=== PATIENT | female | born 1940 | race Caucasian/White ===

== ENCOUNTER 2018-01-11 19:09 | Emergency (ER) | payer MEDICARE ==
[~2018-01-11] VITALS: Ht 165.1 cm; Wt 75.8 kg
[~2018-01-11 19:09] MED LIST: CYMBALTA30 MG PO; GABAPENTIN300 MG PO; METFORMIN HCL500 MG PO; NORCO 5-325 TA1 EACH PO; VALIUM5 MG PO
--- OUTSIDE RECORDS SUMMARY | 2018-01-11 19:15 | XMS ---
Demographics + + + | Address | [address] | | | [place] [address] | + + + | Preferred Language | Unknown | + + + | Marital Status | Unknown | + + + | Muslim Affiliation | Unknown | + + + | Race | Unknown | + + + | Ethnic Group | Unknown | + + + Author + + + | Author | [facility] | + + + | Organization | [facility] | + + + | Address | [address] | | | [place] [address] | + + + | Phone | | + + + Care Team Providers + + + + | Care Chief Operator Reformer Name | Role | Phone | + + + + Unavailable | Unavailable | + + + + PROBLEMS +---------+ + + +--------+ + + | Type | Condition | ICD9-CM | [id number] | Onset | Condition | SNOMED | | | | Code | Code | Dates | Status | Code | +---------+ + + +--------+ + + | Problem | Impaired | | R73.01 | | Active | [id number] | | | fasting | | | | | | | | glucose | | | | | | +---------+ + + +--------+ + + | 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 | 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 | | | idiopathic | | | | | | | | scoliosis | | | | | | | | of | | | | | | | | thoracic | | | | | | | | region | | | | | | +---------+ + + +--------+ + + | Problem | Non morbid | E66.09 | | | Active | 184564617 | | | obesity | | | | | | | | due to | | | | | | | | excess | | | | | | | | calories | | | | | | +---------+ + + +--------+ + + | Problem | Lumbar | M54.17 | | | Active | 684868081 | | | back pain | | | | | | | | with | | | | | | | | radiculopa | | | | | | | | thy | | | | | | | | affecting | | | | | | | | left lower | | | | | | | | extremity | | | | | | +---------+ + + +--------+ + + | 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
--- OUTSIDE RECORDS SUMMARY | 2018-01-11 19:15 | XMS ---
Demographics + + + | Address | [address] | | | [place] [address] | + + + | Preferred Language | Unknown | + + + | Marital Status | Unknown | + + + | Restorationist Affiliation | Unknown | + + + | Race | Unknown | + + + | Ethnic Group | Unknown | + + + Author + + + | Author | [facility] | + + + | Organization | [facility] | + + + | Address | [address] | | | [place] [address] | + + + | Phone | | + + + Care Team Providers + + + + | Care Space Scheduler Name | Role | Phone | + + + + Unavailable | Unavailable | + + + + PROBLEMS + + + + + + + + | Type | Condition | ICD9-CM | RST84-GM | Onset | Condition | SNOMED | | | | Code | Code | Dates | Status | Code | + + + + + + + + | Assessment | Slow | | K59.01 | 03 March, | Active | [id number] | | | transit | | | 2016 | | | | | constipati | | | | | | | | on | | | | | | + + + + + + + + | Assessment | Hypertensi | I11.9 | | 03 March, | Active | 66443521 | | | ve | | | 2016 | | | | | arterioscl | | | | | | | | erotic | | | | | | | | cardiovasc | | | | | | | | ular | | | | | | | | disease | | | | | | + + + + + + + + | Assessment | Dysthymia | F34.1 | | 16 February, | Active | 78718946 | | | | | | 2016 | | | + + + + + + + + | Problem | Impaired | | R73.01 | | Active | 929480403 | | | fasting | | | | | | | | glucose | | | | | | + + + + + + + + | 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 | 41284629 | | | idiopathic | | | | | | | | scoliosis | | | | | | | | of | | | | | | | | thoracic | | | | | | | | region | | | | | | + + + + + + + + | Problem | Non morbid | E66.09 | | | Active | 604354499 | | | obesity | | | | | | | | due to | | | | | | | | excess | | | | | | | | calories | | | | | | + + + + + + + + | Problem | Lumbar | M54.17 | | | Active | 163842196 | | | back pain | | [...] extremity | | | | | | + + + + + + + + | 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 | | Active | 867703852 | | | hyperlipid | | | | | | | | emia | | | | | | + + + + + + + + | Problem | Hypertensi | I11.9 | | | Active | 81767794 | | | ve | | | | | | | | arterioscl | | | | | | | | erotic | | | | | | | | cardiovasc | | | | | | | | ular | | | | | | | | disease | | | | | | + + + + + + + + ALLERGIES + + + + +---------+ | Substance | Reaction | Event Type | Date | Status | + + + + +---------+ | Rani | Unknown | Non Drug | February, | Unknown | | | | Allergy | | | + + + + +---------+ SOCIAL HISTORY No smoking Hx information available PLAN OF CARE VITAL SIGNS + + + + | Height | 65 in | 2017-03-03 | + + + + | Weight | 175.3 lbs | 2017-03-03 | + + + + | BMI | 29.17 kg/m2 | 2017-03-03 | + + + + | Heart Rate | 62 /min | 2017-03-03 | + + + + | Blood pressure systolic | 133 mm Hg | 2017-03-03 | + + + + | Blood pressure diastolic | 65 mm Hg | 2017-03-03 | + + + + MEDICATIONS + + + + +--------+ + +--------+ | Medicati | Instruct | Dosage | Frequenc | Start | End Date | Duration | Status | | on | ions | | y | Date | | | | + + + + +--------+ + +--------+ | Atorvast | Orally | 1 tablet | 24h | | | | Active | | atin | Once a | | | | | | | | Calcium | day | | | | | | | | 40 MG | | | | | | | | + + + + +--------+ + +--------+ | Cetirizi | | | | | | | Active | | ne HCl | | | | | | | | | 10 MG | | | | | | | | + + + + +--------+ + +--------+ | Meloxica | Orally | 1 tablet | 24h | | | 30 | Active | | m 15 MG | Once a | | | | | day(s) | | | | day | | | | | | | + + + + +--------+ + +--------+ | Gabapent | Orally | 2 | 24h | | | | Active | | in 300 | Daily | capsules | | | | | | | MG | | in AM 3 | | | | | | | | | | | | | | | | | | capsules | | | | | | | | | in PM | | | | | | + + + + +--------+ + +--------+ | Calcium | Orally | 1 tablet | 24h | | | 30 | Active | | + D | Once a | with | | | | day(s) | | | 630-500 | day | food | | | | | | | MG-UNIT | | | | | | | | + + + + +--------+ + +--------+ | Cranberr | | | | | | | Active | | y 84 | | | | | | | | + + + + +--------+ + +--------+ | Fexofena | Orally | 1 tablet | 24h | | | | Active | | dine HCl | Once a | as | | | | | | | 180 MG | day | needed | | | | | | + + + + +--------+ + +--------+ | Vitamin | Orally | 1 tablet | 24h | | | | Active | | C 500 MG | Once a | | | | | | | | | day | | | | | | | + + + + +--------+ + +--------+ | Acetamin | Orally | 2 tablet | 24h | | | | Active | | ophen | daily | in | | | | | | | 500 MG | | morning | | | | | | | | | and at | | | | | | | | | night | | | | | | + + + + +--------+ + +--------+ | Atorvast | Orally | 1 tablet | 24h | | | 90 | Active | | atin | Once a | | | | | | | | Calcium | day | | | | | | | | 40MG | | | | | | | | + + + + +--------+ + +--------+ | Ibuprofe | Orally | 1 tablet | 6h | | | | Active | | n 200 MG | every 6 | as | | | | | | | | hrs | needed | | | | | | + + + + +--------+ + +--------+ | Metformi | Orally | 1 tablet | 24h | | | | Active | | n HCl | Once a | | | | | | | | 500 MG | day | | | | | | | + + + + +--------+ + +--------+ | MiraLax | Orally | 1 packet | 24h | | | | Active | | 17 | Once a | mixed | | | | | | | | day | with 8 | | | | | | | | | ounces | | | | | | | | | of fluid | | | | | | + + + + +--------+ + +--------+ | Simethic | Orally | 1 | 6h | | | | Active | | one 125 | Four | capsule | | | | | | | MG | times a | after | | | | | | | | day | meals | | | | | | | | | and at | | | | | | | | | bedtime | | | | | | | | | as | | | | | | | | | needed | | | | | | + + + + +--------+ + +--------+ | Metoprol | Orally | 1 tablet | 24h | | | | Active | | ol | Once a | | | | | | | | Succinat | day | | | | | | | | e 25 mg | | | | | | | | + + + + +--------+ + +--------+ | Magnesiu | Orally | 1 tablet | 24h | | | | Active | | m 250 MG | Once a | with a | | | | | | | | day | meal | | | | | | + + + + +--------+ + +--------+ RESULTS No Results PROCEDURES + + + + + | Procedure | Date Ordered | Related Diagnosis | Body Site | + + + + + | Office Visit, Est | March 03, 2017 | | | | Pt., Level 4 | | | | + + + + + IMMUNIZATIONS No Known Immunizations"
--- OUTSIDE RECORDS SUMMARY | 2018-01-11 19:15 | XMS ---
Demographics + + + | Address | [address] | | | [place] [address] | + + + | Preferred Language | Unknown | + + + | Marital Status | Unknown | + + + | Tenriism Affiliation | Unknown | + + + | Race | Unknown | + + + | Ethnic Group | Unknown | + + + Author + + + | Author | [facility] | + + + | Organization | [facility] | + + + | Address | [address] | | | [place] [address] | + + + | Phone | | + + + Care Team Providers + + + + | Care Frickertron Checker Name | Role | Phone | + + + + Unavailable | Unavailable | + + + + PROBLEMS + + + + + + + + | Type | Condition | ICD9-CM | [id number] | Onset | Condition | SNOMED | | | | Code | Code | Dates | Status | Code | + + + + + + + + | Assessment | Slow | | K59.01 | 20 Apr, | Active | [id number] | | | transit | | | 2016 | | | | | constipati | | | | | | | | on | | | | | | + + + + + + + + | Assessment | Hypertensi | I11.9 | | 20 Jan, | Active | 63119568 | | | ve | | | [...] Assessment | Dysthymia | F34.1 | | 20 Apr, | Active | 99213392 | | | | | | 2016 | | | + + + + + + + + | Assessment | Encounter | | Z13.89 | 20 Apr, | Active | [id number] | | | for | | | 2017 | | | | | screening | | | | | | | | for other | | | | | | | | disorder | | | | | | + + + + + + + + | Problem | Impaired | | R73.01 | | Active | 554657306 | | | fasting | | | | | | | | glucose | | | | | | + + + + + + + + | 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 | Unknown | Non Drug | Jan, | Unknown | | | | Allergy | | | + + + + +---------+ SOCIAL HISTORY No smoking Hx information available PLAN OF CARE VITAL SIGNS + + + + | Height | 65 in | 2017-02-05 | + + + + | Weight | 178.5 lbs | 2017-02-05 | + + + + | BMI | 29.70 kg/m2 | 2017-02-05 | + + + + | Heart Rate | 58 /min | 2017-02-05 | + + + + | Blood pressure systolic | 151 mm Hg | 2017-02-05 | + + + + | Blood pressure diastolic | 71 mm Hg | 2017-02-05 | + + + + MEDICATIONS + [...] + + + +--------+ + +--------+ | Duloxeti | Orally | 1 | 24h | | | 30 days | Active | | ne HCl | Once a | capsule | | | | | | | 60 MG | day | | | | [...] | + + + + + | Est Level IV | February 05, 2017 | | | | Extended | | | | + + + + + IMMUNIZATIONS No Known Immunizations"
--- OUTSIDE RECORDS SUMMARY | 2018-01-11 19:15 | XMS ---
Demographics + + + | Address | [address] | | | [place] [address] | + + + | Preferred Language | Unknown | + + + | Marital Status | Unknown | + + + | Temple Affiliation | Unknown | + + + | Race | Unknown | + + + | Ethnic Group | Unknown | + + + Author + + + | Author | [facility] | + + + | Organization | [facility] | + + + | Address | [address] | | | [place] [address] | + + + | Phone | | + + + Care Team Providers + + + + | Care Drafter Plumbing Name | Role | Phone | + + + + Unavailable | Unavailable | + + + + PROBLEMS +---------+ + + +--------+ + + | Type | Condition | ICD9-CM | [id number] | Onset | Condition | SNOMED | | | | Code | Code | Dates | Status | Code | +---------+ + + +--------+ + + | Problem | Impaired | | R73.01 | | Active | [id number] | | | fasting | | | | | | | | glucose | | | | | | +---------+ + + +--------+ + + | 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 | 23964021 | | | idiopathic | | | [...] | E66.09 | | | Active | 370646512 | | | obesity | | | | | | | | due to | | | | | | | | excess | | | | | | | | calories | | | | | | +---------+ + + +--------+ + + | Problem | Lumbar | M54.17 | | | Active | 011921301 | | | back pain | | [...] | | E78.2 | | Active | 669639417 | | | hyperlipid | | | | | | | | emia | | | | | | +---------+ + + +--------+ + + | Problem | Hypertensi | I11.9 | | | Active | 10587478 | | | ve | | | | | | | | arterioscl | | | | | | | | erotic | | | | | | | | cardiovasc | | | | | | | | ular | | | | | | | | disease | | | | | | +---------+ + + +--------+ + + ALLERGIES + + + + +---------+ | Substance | Reaction | Event Type | Date | Status | + + + + +---------+ | Rani | Unknown | Non Drug | May, | Unknown | | | | Allergy | | | + + + + +---------+ SOCIAL HISTORY No smoking Hx information available PLAN OF CARE + +---------+ | Activity | Details | + +---------+ +---+ | | +---+ + + + | Follow Up | prn Reason:null | + + + VITAL SIGNS + + + + | Height | 65 in | 2017-06-16 | + + + + | Weight | 169.6 lbs | 2017-06-16 | + + + + | BMI | 28.22 kg/m2 | 2017-06-16 | + + + + | Temperature | 97.4 degrees Fahrenheit | 2017-06-16 | + + + + | Heart Rate | 77 /min | 2017-06-16 | + + + + | Blood pressure systolic | 138 mm Hg | 2017-06-16 | + + + + | Blood pressure diastolic | 59 mm Hg | 2017-06-16 | + + + + MEDICATIONS + + + + + + + +--------+ | Medicati | Instruct | Dosage | Frequenc | Start | End Date | Duration | Status | | on | ions | | y | Date | | | | + + + + + + + +--------+ | Atorvast | Orally | 1 tablet | 24h | | | | Active | | atin | Once a | | | | | | | | Calcium | day | | | | | | | | 40 MG | | | | | | | | + + + + + + + +--------+ | Fexofena | Orally | 1 tablet | 24h | | | | Active | | dine HCl | Once a | as | | | | | | | 180 MG | day | needed | | | | | | + + + + + + + +--------+ | Cetirizi | | | | | | | Active | | ne HCl | | | | | | | | | 10 MG | | | | | | | | + + + + + + + +--------+ | MiraLax | Orally | [...] + + + + + + + +--------+ | Acetamin | Orally | [...] + + + + + + + +--------+ | Cranberr | | | | | | | Active | | y 84 | | | | | | | | + + + + + + + +--------+ | Metoprol | Orally | 1 tablet | 24h | | | 90 | Active | | ol | Once a | | | | | | | | Succinat | day | | | | | | | | e 25MG | | | | | | | | + + + + + + + +--------+ | Vitamin | Orally | 1 tablet | 24h | | | | Active | | C 500 MG | Once a | | | | | | | | | day | | | | | | | + + + + + + + +--------+ | Simethic | Orally | [...] + + + + + + + +--------+ | Ibuprofe | Orally | 1 tablet | 6h | | | | Active | | n 200 MG | every 6 | as | | | | | | | | hrs | needed | | | | | | + + + + + + + +--------+ | Gabapent | Orally | [...] + + + + + + + +--------+ | Meloxica | Orally | 1 tablet | 24h | | | 90 | Active | | m 15MG | Once a | | | | | | | | | day | | | | | | | + + + + + + + +--------+ | Calcium | Orally | 1 tablet | 24h | | | 30 | Active | | + D | Once a | with | | | | day(s) | | | 630-500 | day | food | | | | | | | MG-UNIT | | | | | | | | + + + + + + + +--------+ | Tessalon | Orally | 1 | 8h | May, | 8 Sep, | 10 days | Active | | Perles | Three | capsule | | 2017 | 2016 | | | | 100 MG | times a | as | | | | | | | | day | needed | | | | | | + + + + + + + +--------+ | Magnesiu | Orally | 1 tablet | 24h | | | | Active | | m 250 MG | Once a | with a | | | | | | | | day | meal | | | | | | + + + + + + + +--------+ | Cephalex | Orally | 1 | 8h | May, | 8 Jun, | 10 | Active | | in 500 | every 8 | capsule | | 2016 | 2016 | day(s) | | | MG | hrs | | | | | | | + + + + + + + +--------+ | Metformi | Orally | 1 tablet | 24h | | | 90 | Active | | n HCl | Once a | | | | | | | | 500MG | day | | | | | | | + + + + + + + +--------+ RESULTS No Results PROCEDURES + + + + + | Procedure | Date Ordered | Related Diagnosis | Body Site | + + + + + | Office Visit, Est | Jun 16, 2017 | | | | Pt., Level 3 | | | | + + + + + IMMUNIZATIONS No Known Immunizations"
--- OUTSIDE RECORDS SUMMARY | 2018-01-11 19:15 | XMS ---
Demographics + + + | Address | [address] | | | [place] [address] | + + + | Preferred Language | Unknown | + + + | Marital Status | Unknown | + + + | Taoism Affiliation | Unknown | + + + | Race | Unknown | + + + | Ethnic Group | Unknown | + + + Author + + + | Author | [facility] | + + + | Organization | [facility] | + + + | Address | [address] | | | [place] [address] | + + + | Phone | | + + + Care Team Providers + + + + | Care High School Tutor Name | Role | Phone | + + + + Unavailable | Unavailable | + + + + PROBLEMS +---------+ + + +--------+ + + | Type | Condition | ICD9-CM | WHM91-BU | Onset | Condition | SNOMED | | | | Code | Code | Dates | Status | Code | +---------+ + + +--------+ + + | Problem | Impaired | | R73.01 | | Active | [id number] | | | fasting | | | | | | | | glucose | | | | | | +---------+ + + +--------+ + + | 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
[2018-01-11] MEDS ORDERED: METOPROLOL SUCC25 MG PO (19:22)
[2018-01-11] MEDS ORDERED: NORCO 5-325 TA1 EACH PO (19:55)
[2018-01-11] MEDS ORDERED: CRUTCH1 EACH (20:01)
== END 2018-01-11 20:24 | disposition home or self-care (01) ==
LOC: ED 19:09
DX: S82.831A Other fracture of upper and lower end of right fibula, initial encounter for closed fracture (principal); Z85.3 Personal history of malignant neoplasm of breast; I10 Essential (primary) hypertension; Z79.899 Other long term (current) drug therapy; Z79.84 Long term (current) use of oral hypoglycemic drugs; X50.9XXA Other and unspecified overexertion or strenuous movements or postures, initial encounter
CPT/HCPCS: 73610; 99283

== ENCOUNTER 2019-06-09 07:35 | Day surgery (SDC) | payer MEDICARE, OTHER ==
[~2019-06-09] VITALS: Ht 165.1 cm; Wt 73.0 kg
[~2019-06-09 07:35] MED LIST changes: +CRUTCH1 EACH; +METOPROLOL SUCC25 MG PO
[2019-06-09] MEDS ORDERED: VITAMIN B125000 MCG PO (08:07)
[2019-06-09] MEDS ORDERED: LIPITOR20 MG PO (08:08)
[2019-06-09] MEDS ORDERED: MULTIVITAMINS1 EAC8 PO (08:08)
[2019-06-09] MEDS ORDERED: VITAMIN D32000 UNI1 PO (08:09)
[2019-06-09] MEDS ORDERED: VITAMIN C500 M1 PO (08:09)
[2019-06-09] MEDS ORDERED: CALCIUM CITRAT1 EAC3 PO (08:10)
[2019-06-09] MEDS ORDERED: MIRALAX119 GM PO (08:11)
[2019-06-09] MEDS ORDERED: MUCUS RELIEF400 MG PO (08:11)
[2019-06-09] MEDS ORDERED: STOOL SOFTENER100 M1 PO (08:11)
--- NOTE | 2019-06-09 09:53 | NUR ---
06/09/19 0953 Bianca Ortega 0923 PT ARRIVED TO PACU ON 3L VIA MASK, PT WAKES TO VERBAL STIMULI THEN BACK TO SLEEP. PT REORIENTED TO PACU. VSS.
--- NOTE | 2019-06-10 08:14 | OR ---
[facility] [address], [place] [address] Signed DATE OF OPERATION: 06/09/2019 SURGEON: Torrie Gallegos MD PREOPERATIVE DIAGNOSES: 1. Iron-deficiency anemia. 2. Tylenol and ibuprofen use. 3. Personal history of colonic polyps in 2010. 4. Sister with colon cancer in her 60s. 5. Father with colonic polyps. 6. Chronic constipation. POSTOPERATIVE DIAGNOSES: 1. Mild punctate diffuse hemorrhagic gastritis. 2. Mid esophageal esophagitis versus Kidd's mucosa. 3. Poor bowel prep. PROCEDURES: 1. EGD with CLOtest and biopsies of the antrum, body of stomach, and midesophagus. 2. Limited colonoscopy without biopsy. ESTIMATED BLOOD LOSS: None. INDICATIONS: Travis is a 79-year-old female who actually looks younger than her stated age. She is here for upper endoscopy due to iron deficiency anemia. She does use some acetaminophen and ibuprofen. She also takes iron tablets. She had a couple of small polyps removed in 2010. She cannot remember the name of the endoscopist. She knows that her sister had colon cancer in her early 60s and her father also had colonic polyps removed. Travis has a little chronic constipation and uses some MiraLAX for that. Otherwise, she has no lower GI complaints. In the office, I gave Travis a pamphlet on upper and lower endoscopy. 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 I reviewed with her the nature of the two tests along with the risks including, but not limited to gas, bloating, crampy abdominal pain, bleeding, perforation requiring surgery, and missed diagnosis. She also understands the need for IV conscious sedation. She had expressed understanding and wished to proceed. PROCEDURE NOTE: Electronically Signed By: TORRIE GALLEGOS MD 06/10/19 0814 PATIENT NAME: TRAVIS MANLEY OPERATIVE REPORT DATE OF : 42 REPORT #: [id number] PHYSICIAN: TORRIE GALLEGOS MD PCP: ANGELINA HUERTAS MD REPORT IS CONFIDENTIAL AND NOT TO BE RELEASED WITHOUT AUTHORIZATION [facility] [address], [place] [address] Signed Travis was taken into our endoscopy suite and placed in the supine semi-recumbent position. The posterior oropharynx was anesthetized with Hurricaine spray. A bite block was utilized for the case. A total of 5 mg of Versed and 125 mcg of fentanyl was utilized for both upper and lower endoscopy. The adult gastroscope had been introduced and advanced out into the third portion of the duodenum under direct visualization of camera without difficulty. The duodenum and pyloric channel were unremarkable. The stomach showed some mild diffuse punctate hemorrhagic gastritis. More so in the proximal half than the distal half. We took biopsies from the antrum and body of the stomach for pathologic review. We took an additional biopsy of the antrum for CLOtest. Upon retroflexion of scope, no visible evidence of any hiatal hernia. No gastric or esophageal varices. The scope had been withdrawn up through the area of the GE junction, which was compliant without stricture. The distal esophagus was unremarkable. In the midesophagus, she had just a small patch of erythematous tissue that could represent a small island of Kidd's mucosa versus esophagitis. Consequently, we went ahead and biopsied that area. The upper esophagus was unremarkable. The epiglottis, arytenoids and vocal cords were also unremarkable. After this, the gas was suctioned out and the gastroscope removed. Travis tolerated her upper endoscopy quite well. Travis was then rotated into the left lateral decubitus position. She was maintained on IV sedation with Versed and fentanyl. A digital rectal exam was performed and she has some very small external hemorrhoid tissue. After this, the adult colonoscope was introduced and advanced under direct visualization of the camera. She did have some black particulate liquid stool in the rectum. We went ahead and advanced the scope up through the sigmoid colon up into the left colon. She continued to have black liquid stool covering most of the mucosa. We eventually encountered a wall of black liquid stool that we could not pass the scope any further. Consequently, she underwent a limited colonoscopy. The scope was slowly withdrawn. Really, no significant meaningful interpretation of the mucosa. No obvious large cancer down the left colon or sigmoid colon or rectum. Upon retroflexion of scope in the rectum, she does have some minimal internal hemorrhoid columns. After this, the gas was suctioned out and colonoscope removed. Travis tolerated the procedure quite well. RECOMMENDATIONS: I will see Travis back in my office in 7 to 14 days to review her results. She needs to repeat the colonoscopy with a double bowel prep. Torrie Gallegos MD Electronically Signed By: TORRIE GALLEGOS MD 06/10/19 0814 PATIENT NAME: TRAVIS MANLEY OPERATIVE REPORT DATE OF : 42 REPORT #: [id number] PHYSICIAN: TORRIE GALLEGOS MD PCP: ANGELINA HUERTAS MD REPORT IS CONFIDENTIAL AND NOT TO BE RELEASED WITHOUT AUTHORIZATION [facility] [address] [place] [address] Signed ALB/MODL /[id number] cc: MD Angelina Mauricio MD Copies: TORRIE GALLEGOS MD ~ Electronically Signed By: TORRIE GALLEGOS MD 06/10/1913 PATIENT NAME: TRAVIS MANLEY OPERATIVE REPORT DATE OF : 42 REPORT #: [id number] PHYSICIAN: TORRIE GALLEGOS MD PCP: ANGELINA HUERTAS MD REPORT IS CONFIDENTIAL AND NOT TO BE RELEASED WITHOUT AUTHORIZATION
== END 2019-06-09 10:34 | disposition home or self-care (01) ==
LOC: OPS 07:35 → DS 09:00 → OPS 09:00
PROVIDERS: Colon & Rectal Surgery
PROC: 0DB28ZX Excision of Middle Esophagus, Via Natural or Artificial Opening Endoscopic, Diagnostic (ICD-10-PCS; 2019-06-09)
PROC: 0DJD8ZZ Inspection of Lower Intestinal Tract, Via Natural or Artificial Opening Endoscopic (ICD-10-PCS; 2019-06-09)
PROC: 0DB78ZX Excision of Stomach, Pylorus, Via Natural or Artificial Opening Endoscopic, Diagnostic (ICD-10-PCS; principal; 2019-06-09 09:00)
PROC: 0DB68ZX Excision of Stomach, Via Natural or Artificial Opening Endoscopic, Diagnostic (ICD-10-PCS; 2019-06-09 09:00)
DX: K29.71 Gastritis, unspecified, with bleeding (principal); D50.9 Iron deficiency anemia, unspecified; K59.09 Other constipation; Z83.71 Family history of colonic polyps; Z80.0 Family history of malignant neoplasm of digestive organs; Z86.010 Personal history of colon polyps; Z88.6 Allergy status to analgesic agent; Z79.899 Other long term (current) drug therapy
CPT/HCPCS: 86677; 99153; G0500; J2250; J3010; J7120

== ENCOUNTER 2019-06-30 07:38 | Day surgery (SDC) | payer MEDICARE, OTHER ==
[~2019-06-30] VITALS: Ht 165.1 cm; Wt 72.6 kg
--- NOTE | ~2019-06-30 | OR ---
[facility] [address] [place], [place] [address] Draft DATE OF OPERATION: 06/30/2019 SURGEON: Torrie Gallegos MD PREOPERATIVE DIAGNOSES: 1. Iron-deficiency anemia. 2. Personal history of colonic polyps in 2010. 3. Father with colonic polyps. 4. Sister with colon cancer in her 60s. 5. Chronic constipation. 6. Long redundant colon. POSTOPERATIVE DIAGNOSES: 1. Minimal sigmoid diverticulosis. 2. Minimal internal hemorrhoids. 3. Possible 4 mm polyp, proximal transverse colon. 4. Long redundant colon. 5. Melanosis coli. PROCEDURE: Colonoscopy with hot biopsy and several random biopsies. 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 She presents as above with a personal history of colonic polyps and a father with colonic polyps. Her sister had colon cancer in her 60s. She is known to have iron deficiency anemia along with some chronic constipation. She said to have a long redundant colon based on a previous colonoscopy. We attempted her colonoscopy in May of this year and the bowel prep was simply too poor. We put her through a double bowel prep and brought her back today for her colonoscopy. She is very familiar with colonoscopy and understands its risks including, but not limited to gas, bloating, crampy abdominal pain, bleeding, perforation requiring surgery, and missed diagnosis. She also understands the need for IV conscious sedation. She had expressed understanding and wished to proceed. PROCEDURE NOTE: Travis was taken into our endoscopy suite and placed in the left lateral decubitus position. She was given IV sedation with 6 mg of Versed and 100 mcg of fentanyl. A digital rectal exam was performed and this was unremarkable. Her sphincter tone was generally on the lower side. The adult colonoscope was introduced and advanced under PATIENT NAME: TRAVIS MANLEY OPERATIVE REPORT DATE OF : 42 REPORT #: [id number] PHYSICIAN: TORRIE GALLEGOS MD PCP: MARY KAY HUERTAS MD REPORT IS CONFIDENTIAL AND NOT TO BE RELEASED WITHOUT AUTHORIZATION [facility] [address] [place], [place] [address] Draft direct visualization of camera. We immediately encountered lots of seeds of varying sizes and shapes and types. We slowly but surely made our way through a very long redundant colon. She does have minimal sigmoid diverticulosis. We used extra sedation and 2 people to push on her stomach and we still could not advance the scope all the way down the right colon. We rotated her into the supine position and repeated the process back in the left lateral decubitus position and repeated the process as well. Amazingly, after a double prep, she still had areas of liquid particulate stool matter, much of that I could not suction out because of all the seeds. In fact, we clogged the scope and had to clean the scope out afterwards. We could see the ileocecal valve, but we could see the cecum itself because of the liquid in the cecum. The scope was then slowly withdrawn. She appeared to have a polypoid lesion on the distal side of the hepatic flexure as we came into the proximal transverse colon. We removed that completely with the help of a hot biopsy forceps. We also could see mild tiger striping throughout the colon concerning for melanosis coli. Consequently, we took a couple of biopsies for pathologic review. The rectum itself was unremarkable. Upon retroflexion of the scope, she has just small standard internal hemorrhoid columns. After this, the gas was suctioned out and colonoscope removed. Travis tolerated the procedure quite well. RECOMMENDATIONS: I will see Travis back in my office in 7 to 14 days to review her results. We can talk about the possibility of a barium enema if she would like. She will need colonoscopy every 5 years based on her personal family history. We will also review the biopsies for melanosis coli. She will take no aspirin or NSAIDs for a week. Torrie Gallegos MD ALB/MODL /[id number] cc: MD Torrie Hassan MD [place], [employer] PATIENT NAME: TRAVIS MANLEY OPERATIVE REPORT DATE OF : 42 REPORT #: [id number] PHYSICIAN: TORRIE GALLEGOS MD PCP: MARY KAY HUERTAS MD REPORT IS CONFIDENTIAL AND NOT TO BE RELEASED WITHOUT AUTHORIZATION [facility] [address] [place] [address] Draft Copies: TORRIE GALLEGOS MD, [employer] ~ PATIENT NAME: TRAVIS MANLEY OPERATIVE REPORT DATE OF : 42 REPORT #: [id number] PHYSICIAN: TORRIE GALLEGOS MD PCP: MARY KAY HUERTAS MD REPORT IS CONFIDENTIAL AND NOT TO BE RELEASED WITHOUT AUTHORIZATION
[~2019-06-30 07:38] MED LIST changes: +CALCIUM CITRAT1 EAC3 PO; +LIPITOR20 MG PO; +MIRALAX119 GM PO; +MUCUS RELIEF400 MG PO; +MULTIVITAMINS1 EAC8 PO; +STOOL SOFTENER100 M1 PO; +VITAMIN B125000 MCG PO; +VITAMIN C500 M1 PO; +VITAMIN D32000 UNI1 PO
--- NOTE | 2019-06-30 09:59 | NUR ---
06/30/19 0958 Brianne Woodard 0987-PATIENT ARRIVED TO PACU ON 2L NC PATIENT REACTIVE TO VOICE OPENS EYES VERY DROWSY. PATIENT DENIES PAIN OR NAUSEA ENCOURAGED TO PASS GAS ABDOMEN ROUND AND SOFT. DOZES BACK TO SLEEP. RR EVEN.
--- NOTE | 2019-07-01 14:35 | PATH ---
[facility] [address] [place], [place] [address] Signed SPECIMEN(S): A PROXIMAL TRANSVERSE COLON POLYP SPECIMEN(S): B RANDOM COLON BIOPSY SPECIMEN SOURCE: A. PROXIMAL TRANSVERSE COLON POLYP B. RANDOM COLON BIOPSY CLINICAL HISTORY: History colon polyps 2010, family history colon cancer. Post: Diverticulosis, polyp, melanosis coli. MICROSCOPIC DESCRIPTION: Histologic sections of all submitted blocks are examined by light microscopy. These findings, together with the gross examination, support the pathologic diagnosis. FINAL PATHOLOGIC DIAGNOSIS: A. Proximal transverse polyp, polypectomy: - Hyperplastic polyp. B. Random colon, biopsy: - Benign colonic mucosa with melanosis coli. DDF:vlg:C2NR GROSS DESCRIPTION: Two specimens are received in two containers, labeled "GM." A. The specimen, labeled "GM, proximal transverse polyp," is received in formalin and consists of a 0.4 cm in greatest dimension, irregular restrepo-white soft tissue fragment. The specimen is entirely submitted in cassette (A1). B. The specimen, labeled "GM, random colon biopsy," is received in formalin and consists of a 0.4 cm in greatest dimension, irregular restrepo-white soft tissue fragment. The specimen is entirely submitted in cassette (B1). AR (under the direct supervision of a pathologist) The Gross Description was prepared using a voice recognition system. The report was reviewed for accuracy; however, sound-alike word errors, addition and/or deletions may occur. If there is any question about this report, please contact Client Services. PERFORMING LABORATORY: The technical component was performed by [facility], [address] [place] [address] (Asset Protection Manager: Lara Garcia MD; CLIA# [id number]). PATIENT NAME: TRAVIS MANLEY PATHOLOGY DATE OF : 42 REPORT #: [id number] PHYSICIAN: CECI PATHOLOGY PCP: MARY KAY HUERTAS MD REPORT IS CONFIDENTIAL AND NOT TO BE RELEASED WITHOUT AUTHORIZATION [facility] [address] [place], [place] [address] Signed [facility] [address] [address] (Asset Protection Manager: Cortes Rice MD; CLIA# [id number]). Diagnostician: Kehinde Bah DO Pathologist Electronically Signed 07/01/2019 Copies: ~ PATIENT NAME: TRAVIS MANLEY PATHOLOGY DATE OF : 42 REPORT #: [id number] PHYSICIAN: CECI PATHOLOGY PCP: MARY KAY HUERTAS MD REPORT IS CONFIDENTIAL AND NOT TO BE RELEASED WITHOUT AUTHORIZATION
== END 2019-06-30 10:45 | disposition home or self-care (01) ==
LOC: DS 07:38 → OPS 07:38 → DS 10:30 → OPS 10:30
PROVIDERS: Colon & Rectal Surgery
PROC: 0DBE8ZX Excision of Large Intestine, Via Natural or Artificial Opening Endoscopic, Diagnostic (ICD-10-PCS; 2019-06-30)
PROC: 0DBL8ZZ Excision of Transverse Colon, Via Natural or Artificial Opening Endoscopic (ICD-10-PCS; principal; 2019-06-30 09:00)
DX: K63.5 Polyp of colon (principal); D50.9 Iron deficiency anemia, unspecified; K59.09 Other constipation; K57.30 Diverticulosis of large intestine without perforation or abscess without bleeding; K64.8 Other hemorrhoids; K63.89 Other specified diseases of intestine; Q43.8 Other specified congenital malformations of intestine; Z86.010 Personal history of colon polyps; Z80.0 Family history of malignant neoplasm of digestive organs; Z83.71 Family history of colonic polyps; Z79.899 Other long term (current) drug therapy; Z88.6 Allergy status to analgesic agent
CPT/HCPCS: 99153; G0500; J2250; J3010; J7120

== ENCOUNTER 2020-02-23 21:39 | Observation (INO) | payer MEDICARE, OTHER ==
[~2020-02-23] VITALS: Ht 165.1 cm; Wt 69.8 kg
[2020-02-23] MEDS ORDERED: GABAPENTIN300 MG PO (21:54)
--- NOTE | 2020-02-24 07:45 | EKG ---
[facility] [address] [facility] [place], [place] [address] Signed Normal sinus rhythm Cannot rule out Anterior infarct , age undetermined Abnormal ECG No previous ECGs available Confirmed by AMANDA SHAW MD ([id number]) on 02/24/2020 7:45:42 AM Electronically Signed By: AMANDA SHAW MD 02/24/20 0745 PATIENT NAME: TARVIS MANLEY Electrocardiogram DATE OF : 42 PHYSICIAN: AMANDA SHAW MD REPORT #: [id number] REPORT IS CONFIDENTIAL AND NOT TO BE RELEASED WITHOUT AUTHORIZATION
== END 2020-02-24 12:03 | disposition home or self-care (01) ==
LOC: ED 21:39 → MS 21:41
PROVIDERS: ADMIT Internal Medicine
DX: R53.1 Weakness (principal); I10 Essential (primary) hypertension; E78.5 Hyperlipidemia, unspecified; Z88.6 Allergy status to analgesic agent; Z79.899 Other long term (current) drug therapy; Z85.3 Personal history of malignant neoplasm of breast; Z90.710 Acquired absence of both cervix and uterus; Z90.10 Acquired absence of unspecified breast and nipple
CPT/HCPCS: 36415; 71045; 80048; 80053; 81001; 83735; 84443; 84484; 85025; 93005; 93010; 97116; 97161; 99285-25; G0378; J3480; J7030; U0002

== ENCOUNTER 2020-04-06 10:17 | Inpatient (IN) | payer MEDICARE, OTHER ==
[~2020-04-06] VITALS: Ht 165.1 cm; Wt 68.0 kg
[~2020-04-06 10:17] MED LIST changes: +CENTRUM SILVER1 EAC5 PO; +MUCINEX DM ER1 EACH PO; -MUCUS RELIEF400 MG PO; -MULTIVITAMINS1 EAC8 PO; -VITAMIN D32000 UNI1 PO; +VITAMIN D350 MC3 PO
[2020-04-09] MEDS ORDERED: FERROUS SULFAT324 MG PO (11:55)
--- NOTE | 2020-04-11 13:07 | NUR ---
04/11/20 1307 Monika Cruz 1255 PT ARRIVED IN PACU AWAKE WITH NO C/O'S. 1300 ICE TO ABD.
--- NOTE | 2020-04-11 13:45 | NUR ---
Patient arrives to the unit via hospital bed. Report received. Patient laying in bed with eyes closed, rouses easily to voice. LR infusing. Vital signs taken, assessment complete. Midline abdominal dressing is C/D/I. Hypoactive bowel tones. Patient denies pain. Warm blankets provided, wet swabs for dry mouth. Water provided. D5LR infusing at 125 mls/hr. Medications given. Patient has daughter in room at bedside. Denies needs at this time, call light within reach.
--- NOTE | 2020-04-11 15:00 | NUR ---
Patient laying in bed with eyes closed. Rouses easily to voice. Vitals taken, assessment complete. Midline abdominal dressing is C/D/I. Hypoactive bowel tones noted. Patient denies pain in abdomen, reports slight pain in back. Pillow placed underneath right side for comfort. Warm blankets provided, sips of water taken. Daughter left room, sister now at bedside. Denies needs at this time, call light within reach.
--- NOTE | 2020-04-11 16:00 | NUR ---
Patient reports pain in abdomen, prn pain medication given. Vitals taken, assessment complete. Midline dressing is C/D/I, hypoactive bowel tones noted. Warm blankets provided, sips of water taken. Pillow placed under left side to relieve chronic pain in back. Denies further needs, call light within reach.
--- NOTE | 2020-04-11 17:52 | NUR ---
THIS OFFICE CLERK ROUTINE CHARTED VITALS FOR RN ANTON SHE WAS BUSY IN ANOTHER ROOM. PATIENT RESTING SOUNDLY IN BED, EYES CLOSED. FAMILY AT BEDSIDE.
--- NOTE | 2020-04-11 18:44 | NUR ---
Patient sitting up in bed, alert. 2LNC in place, SpO2 of 97%. Patient denies pain. Clear liquid tray delivered, patient slowly eating. Denies further needs, call light within reach.
--- NOTE | 2020-04-11 19:30 | NUR ---
SHIFT REPORT RECEIVED. PATIENT RESTING IN BED WITH EYES CLOSED. VS SATBLE. FAMILY AT BEDSIDE.
--- NOTE | 2020-04-11 20:30 | NUR ---
PATIENT RESTING IN BED. DENIES PAIN. VS STABLE. TOLERATING 2L NC. LUNGS ARE CLEAR, DIM IN THE BASES. ENCOURAGED DEEP BREATHING. ABD IS SOFT, BOWEL SOUNDS HYPOACTIVE THROUGHOUT. DRESSING CDI. NO NAUSEA. WHITE DRAINING CONCENTRATED URINE. WHITE CARE DONE. SCDs IN PLACE. PATIENT REQUEST EYE MASK AND EAR PLUGS WHICH WERE PROVIDED. IV FLUIDS PER ORDER, SITE WNL. PATIENT DENIED ANY FURTHER NEEDS. CALL LIGHT IN REACH.
--- NOTE | 2020-04-11 22:00 | NUR ---
WHITE EMPTIED FOR 100 MLS DARK YELLOW URINE. PATIENT RESTING COMFORTABLY. DENIES NAUSEA OR PAIN. VS STABLE.
--- NOTE | 2020-04-11 23:45 | NUR ---
PATIENT REPORTS PAIN IN HER BACK. ASSISTED PATIENT TO REPOSITION TO HER RIGHT SIDE AND PLACED SUPPORT PILLOW BEHIND HER BACK. NO ABD PAIN OR NAUSEA. BOWEL SOUNDS CONTINUE TO BE HYOPACTIVE. PATIENT TOLERATING 2L NC, TITRATED TO 1L. IV FLUIDS PER ORDER, SITE WNL. URINE OUTPUT ABOUT 25 ML/HR, CONCENTRATED. PATIENT DENIES ANY FURTHER NEEDS. CALL LIGHT IN REACH.
--- NOTE | 2020-04-12 01:39 | NUR ---
PT CALLED TO REPORT 8/10 ABDOMINAL AND BACK PAIN. 1MG IV DILAUDID ADMINISTERED AND FRESH ICE PACK PLACED ON ABDOMEN.
--- NOTE | 2020-04-12 04:24 | NUR ---
PATIENT RESTING IN BED. AWAKE WHEN RN ENTERED ROOM. REPORTS IMPROVED PAIN CONTROL, RATES 4/10 IN ABD AND BACK. ICE PACK IN PLACE ON ABD. MIDLINE DRESSING CDI. ABD SOFT, BOWEL SOUNDS HYPOACTIVE. NO NAUSEA. WHITE REPOSITIONED, DRAINING INDIGO COLORED URINE. IV FLUIDS PER ORDER, SITE WNL. PATIENT DENIES ANY NEEDS AT THIS TIME. CALL LIGHT IN REACH.
--- NOTE | 2020-04-12 05:10 | NUR ---
PATIENT TITRATED TO ROOM AIR. REPORTS GOOD PAIN CONTROL.
--- NOTE | 2020-04-12 06:27 | NUR ---
DR. GALLEGOS IN UNIT. UPDATED HIM ON PT'S URINE OUTPUT TREND THROUGH THE NIGHT AND RECENT BP TRENDS.
--- NOTE | 2020-04-12 08:15 | NUR ---
IV SITE IS INTACT, NO REDNESS OR SWELLING NOTED, PT DENIES PAIN WITH FLUSH. PT DENIES PAIN, NAUSEA, AND SOB IN GENERAL. PT IS ALERT AND ORIENTED X4, COOPERATIVE. INCISION SITE DRESSING IS C/D/I. JELLO ORDERED FOR PT BREAKFAST.
--- NOTE | 2020-04-12 09:07 | NUR ---
REPORT RECEIVED FROM RASTA FARMER. THIS RN ASSUMING CARE OF PT. PT RESTING IN BED EATING JELLO. PACKED RED BLOOD CELL INFUSION GOING, NO APPARENT S/S OF REACTION NOTED. PT REPORTS 5/10 PAIN IN UPPER ABDOMEN "OR MAYBE MY BACK. I'M NOT USED TO SLEEPING ON MY BACK." PT DENIES NEED FOR PAIN MEDICATION. CALL LIGHT WITHIN REACH.
--- NOTE | 2020-04-12 09:38 | NUR ---
POTASSIUM DUE. PACKED RED BLOOD CELL INFUSION CONTINUES. 2ND IV STARTED IN LEFT HAND BY THIS RN, BRISK BLOOD RETURN NOTED. POTASSIUM INFUSION STARTED THROUGH THIS IV. PT TOLERATED PROCEEDURE WELL. PT CONSUMED 2 CARTONS OF JELLO FOR BREAKFAST. EDUCATION DONE WITH PT REGARDING FLUID RESTRICTION. PT WATCHING TV. NO ADDITIONAL REQUESTS OR COMPLAINTS AT THIS TIME. CALL LIGHT WITHIN REACH.
--- NOTE | 2020-04-12 10:00 | NUR ---
NEW ORDERS NOTED. THIS RN TO ROOM. CINDY CRUZ'Arturo PER PROTOCOL. GAUZE DRESSING REMOVED. MIDLINE INCISION EDGES WELL APROXIMATED WITH NO DRAINAGE NOTED. 2PA UP TO CHAIR. PT REPORTS "THAT FEELS MORE COMFORTABLE." CALL LIGHT WITHIN REACH. WARM BLANKETS PROVIDED. NO ADDITIONAL REQUESTS OR COMPLAINTS AT THIS TIME.
--- NOTE | 2020-04-12 10:15 | NUR ---
PUMP ALARMING, PACKED RED BLOOD CELL INFUSION COMPLETE. LINE SET TO FLUSH WITH SALINE. 2ND PACKED RED BLOOC CELL UNIT OBTAINED BY RASTA ENAMORADO FROM [facility] PER PROTOCOL. VITALS TAKEN. 2ND UNIT STARTED PER PROTOCOL. TWO RN CHECK BY THIS RN AND RASTA ENAMORADO. THIS RN REMAINS AT BEDSIDE FOR FIRST 15 MINUTES OF INFUSION. NO S/S OF INFUSION REACTION NOTED. RATE INCREASED TO 150ML/HR PER PROTOCOL. PT REMAINS UP TO CHAIR. RESTING AT THIS TIME WITH EYES CLOSED, RESPIRATIONS EVEN AND UNLABORED. CALL LIGHT WITHIN REACH.
--- NOTE | 2020-04-12 10:45 | NUR ---
PT REPORTS 7/10 PAIN IN ABDOMEN AND BACK. PAIN MEDICATION OFFERED. PT RESTING IN CHAIR WITH EYES CLOSED. RR = 15, CALL LIGHT WITHIN REACH.
--- NOTE | 2020-04-12 12:19 | NUR ---
NOON ASSESSMENT DUE. PT UP TO CHAIR, RESTING WITH EYES CLOSED. RR = 16, O2 AT 94% ON ROOM AIR. PT AWAKENS TO VOICE. PT UPDATED ON PLAN OF CARE AND TRANSFER TO MED/SURG. PT REPORTS 4/10 PAIN AND DENIES NEED FOR PAIN MEDICATION. LUNG SOUND CLEAR. BOWEL TONES HYPOACTIVE. PT REPORTS SHE HAS NOT YET PASSED ANY VALENTINA. 2PA UP TO COMODE TO VOID, PT UNABLE TO VOID. NANDA CARE DONE. PT BACK TO CHAIR. MID LINE INCISION C/D/I WITH EDGES WELL APROXIMATED AND NO DRAINAGE NOTED. 2ND UNIT OF PACKED RED BLOOD CELLS CONTINUES TO INFUSE. PT TRANSFERED TO MED/SURG UNIT. THIS RN WILL BE CONTINUING CARE OF PT. CALL LIGHT WITHIN REACH. NO ADDITIONAL REQUESTS OR COMPLAINTS.
[2020-04-12] MEDS ORDERED: REMERON30 MG PO (12:44)
--- NOTE | 2020-04-12 12:44 | NUR ---
PUMP ALARMING, PACKED RED BLOOD CELL INFUION COMPLETE. LINE FLUSHED WITH NORMAL SALINE. VITALS TAKEN. IV SALINE LOCKED AT THIS TIME. PT REMAINS UP TO CHAIR. RADHA AND MATIAS PROVIED PER PT REQUEST. PT REMAINS WITHIN FLUID RESTRICION. NO ADDITIOANL REQUESTS OR COMPLAINTS. CALL LIGHT WITHIN REACH.
[2020-04-12] MEDS ORDERED: CITRACAL-VIT D1 EAC1 PO (14:09)
[2020-04-12] MEDS ORDERED: VITAMIN D350 MC3 PO (14:10)
[2020-04-12] MEDS ORDERED: TYLENOL EXTRA500 MG PO (14:12)
[2020-04-12] MEDS ORDERED: CRANBERRY500 M3 PO (14:12)
--- NOTE | 2020-04-12 14:13 | NUR ---
MED REC COMPLETE
--- NOTE | 2020-04-12 14:21 | OR ---
[facility] [place] [facility] [address] [place], [place] [address] Signed DATE OF OPERATION: 04/11/2020 SURGEON: Torrie Gallegos MD PREOPERATIVE DIAGNOSES: 1. Cecal tumor/mass. 2. Anemia. POSTOPERATIVE DIAGNOSES: 1. Distal right circumferential colonic tumor/mass. 2. Long redundant transverse and left colon. PROCEDURES: Right colectomy with stapled fhbv-lz-qawa ileocolonic anastomosis. ESTIMATED BLOOD LOSS: Minimal. FINDINGS: Angelina had a circumferential tumor probably in distal right colon/hepatic flexure. It was lying over the right kidney below her liver and just lateral to the duodenum. Consequently, we had to take some of the retroperitoneum and Gerota's fascia with that specimen and then closed the retroperitoneum over the kidney afterwards. We did not see any evidence of metastatic disease in the mesentery, peritoneum or the liver. We did feel several lymph nodes in the mesentery of our specimen. 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 She has been undergoing evaluation for anemia. She had an endoscopy several months ago and it was thought that we were in the cecum. It was difficult to pass the scope and there was a little bit of liquid stool there, we were looking at the ileocecal valve. We could get the scope quite into that area and so, we decided she would need a barium enema and/or CT scan afterwards if the anemia did not clear. She did have her CT scan and found that there was a circumferential tumor and thought to be the cecum. Thankfully, the liver and the lungs were unremarkable. Her preoperative CEA level is normal at 2.18. Hemoglobin slightly low at 9.3 with a mean cell volume of 77. Angelina had been referred to my office with respect to the above. I gave Angelina our brochure on colorectal polyps and cancer. We looked at that together. We reviewed right colectomy in detail. She understands the nature of that surgery along with the expected intraop and postop course. There is risk to surgery including, but Electronically Signed By: TORRIE GALLEGOS MD 04/12/20 0623 Electronically Signed By: TORRIE GALLEGOS MD 04/13/20 0637 PATIENT NAME: TRAVIS MANLEY OPERATIVE REPORT DATE OF : 42 REPORT #: [id number] PHYSICIAN: TORRIE GALLEGOS MD PCP: ANGELINA HUERTAS MD REPORT IS CONFIDENTIAL AND NOT TO BE RELEASED WITHOUT AUTHORIZATION [address] [address] Signed not limited to bleeding, infection, scarring, change in contour of the skin, damage to bowel, anastomotic leak, incisional hernias and other unforeseen comorbidities. She had expressed understanding and wished to proceed. DESCRIPTION OF PROCEDURE: I met with Azael and her daughter in our preop area. After answering the questions, Angelina was taken in the operating room and placed in the supine position. She was placed under general endotracheal tube anesthesia. She was given preoperative antibiotics along with subcutaneous heparin. SCDs were utilized. A Mercado catheter was inserted with return of clear yellow urine without difficulty. In the office and in the OR, we could palpate this tumor just below the costal margin with deep palpation. Amazingly, Angelina felt like she had no symptoms. After this, a standard periumbilical midline incision was made, carried it into the abdomen bluntly with cautery. She has had a previous appendectomy along with a previous cholecystectomy. She had some adhesions to the gallbladder bed and it took just a few minutes to clear those with the cautery. We could easily see and feel the tumor at the hepatic flexure. She has a very long redundant colon including the cecum, right colon, transverse colon and left colon. It was quite impressive to see that. We then proceeded along standard right colectomy. We had to free up the cecum and right colon along the white line of Toldt with the help of the cautery. We also freed up the transverse colon from the greater curve of the stomach with the cautery and with Pean clamps and 0 Vicryl ties. We also divided the terminal ileum with our linear stapler and then the mesentery of the small bowel in the proximal right colon was divided between Pean clamps and 0 Vicryl ties as we worked our way back toward this tumor. This tumor was adherent to the retroperitoneum. We divided the transverse colon as well with our linear stapler. We slowly but surely worked the tumor up and we took some of the peritoneum in the retroperitoneal fat en bloc with our specimen and we were looking directly at the kidney when we were done. After this, the entire specimen had been passed off the field. The specimen was opened on the back table and pictures were taken for photodocumentation. We then closed the retroperitoneum with a running 0 Vicryl suture. Thankfully, the tumor did not involve the duodenum. After this, we brought the small intestine over to the mid transverse colon and we brought and performed a standard stapled dsuz-xr-zeeu anastomosis. The bowel was held together with interrupted 3-0 silk sutures. The staple lines were opened on the JENNY 75 mm stapler was inserted for the anastomosis. We then closed, opening small bowel in 2 layers with Vicryl and interrupted silk sutures. We then added additional interrupted silk sutures on the anterior staple line to reinforce that staple line. This gave a widely palpable patent anastomosis. The abdomen was then irrigated and suctioned out until clear. The colon was returned to its position along with the small bowel and then we found it and laid in good position without any kinking whatsoever. Again, the liver and the omentum in the mesentery did not appear to have any peritoneal studding or palpable or visible lesions. We did feel several lymph nodes in the mesentery of our specimen. We did not feel any lymph nodes in the remaining mesentery of the transverse Electronically Signed By: TORRIE GALLEGOS MD 04/12/20 0623 Electronically Signed By: TORRIE GALLEGOS MD 04/13/20 0637 PATIENT NAME: TRAVIS MANLEY OPERATIVE REPORT DATE OF : 42 REPORT #: [id number] PHYSICIAN: TORRIE GALLEGOS MD PCP: ANGELINA HUERTAS MD REPORT IS CONFIDENTIAL AND NOT TO BE RELEASED WITHOUT AUTHORIZATION [facility] [place] [facility] [address] [place] [id number] Signed colon. Due to that plus the position of the tumor, we did not perform an extended right colectomy. After that, the midline abdominal wall was reapproximated with interrupted [id number]-zb-etisu #1 PDS sutures. Local anesthetic was injected in the abdominal wall. The wound was irrigated and suctioned out until clear. The dermis was reapproximated with interrupted 3-0 subcuticular Monocryl sutures. Rickie were then used to reapproximate the skin. Dry gauze and tape were applied. Angelina's Mercado catheter was left in place. She was awakened from her anesthesia, extubated in the OR, and taken to the recovery room in stable condition. Torrie Gallegos MD ALB/MODL /[id number] cc: MD Torrie Hassan MD Copies: TORRIE GALLEGOS MD ~ Electronically Signed By: TORRIE GALLEGOS MD 04/12/20 0623 Electronically Signed By: TORRIE GALLEGOS MD 04/13/20 0637 PATIENT NAME: TRAVIS MANLEY OPERATIVE REPORT DATE OF : 42 REPORT #: [id number] PHYSICIAN: TORRIE GALLEGOS MD PCP: ANGELINA HUERTAS MD REPORT IS CONFIDENTIAL AND NOT TO BE RELEASED WITHOUT AUTHORIZATION
--- NOTE | 2020-04-12 14:43 | NUR ---
THIS RN TO ROOM TO CHECK ON PT. PT RESTIN IN BED. SISTER AT BEDSIDE. SCD'S PLACED AND TURNED ON. WARM BLANKET PROVIDED. PT DENIES ADDITIONAL REQUESTS OR COMPLAINTS. CALL LIGTH WITHIN REACH.
--- NOTE | 2020-04-12 15:02 | NUR ---
RECEIVED REPORT FROM Andres GUADARRAMA RN
--- NOTE | 2020-04-12 16:23 | NUR ---
Spoke with pt and daughter for CM assessment. Pt lives in [place], alone, in an apartment. Uses a cane. Pt states she is independent. Plans on going home to her sons house on [address] for a short while. Daughter will stay through the week. Pt denies needs to go home, but states she will see as she works with PT if she has any needs.
--- NOTE | 2020-04-12 16:55 | NUR ---
Transferred from CCU to room 107 this afternoon. Continent of urine, ambulates with standby assist. Cotninues to have IV fluids infusing. Pain controlled with PRN analgesic X1. Incision remains approximated with no signs of infection noted. Low blood pressures noted, asymptomatic. No passing gas at this time.
--- NOTE | 2020-04-12 19:20 | NUR ---
RECEIVED REPORT FROM RASTA RAGSDALE. pt RESTING IN BED WITH EYES CLOSED, RESPIRATIONS REGULAR AND UNLABORED. CALL LIGHT WITHIN REACH.
--- NOTE | 2020-04-12 22:11 | NUR ---
pt REPORTED 8/10 PAIN, PRN PAIN MEDICATION GIVEN (SEE MAR). ASSESSMENT DONE. MIDLINE INCISION OPEN TO AIR, EDGES WELL APPROXIMATED, CDI. IVF INFUSING PER ORDERS. pt AMBULATED TO TOILET, 1PA. RESTING IN BED. NO REQUESTS AT THIS TIME. FRESH WATER PROVIDED. pt REPORTED A POOR APPETITE. NO FURTHER REQUESTS AT THIS TIME. CALL LIGHT WITHIN REACH.
--- NOTE | 2020-04-13 01:52 | NUR ---
ROUNDED ON pt. UP TO VOID AND BACK TO BED. ASSESSMENT DONE. REPORTED 6/10 PAIN, PRN GIVEN (SEE MAR). ASSISTED pt TO REPOSITION. NO FURTHER REQUESTS AT THIS TIME. CALL LIGHT WITHIN REACH.
--- NOTE | 2020-04-13 04:45 | NUR ---
ROUNDED ON pt. REQUESTED PRN PAIN MEDS FOR 7/10 PAIN, GIVEN (SEE MAR). pt UP TO VOID AND BACK TO BED 1PA. INCISION CDI, EDGES WELL APPROXIMATED. VITALS AND I&O RECORDED. NO FURTHER REQUESTS AT THIS TIME. CALL LIGHT WITHIN REACH.
--- NOTE | 2020-04-13 05:15 | NUR ---
pt RESTED ON AND OFF DURING SHIFT. PAIN CONTROLLED WITH PRN IV MEDS X3 AND PO X1. FLAT AFFECT, SLOW TO RESPOND. 1PA. IVF INFUSING. BOWEL TONES HYPOACTIVE, REPORTED PASSING "A LITTLE" GAS. MIDLINE INCISION OPEN TO AIR WITH GAEL. TOLERATING CLEAR LIQUIDS 1000 FLUID RESTRICTION. USES CALL LIGHT APPROPRIATELY.
--- NOTE | 2020-04-13 05:50 | NUR ---
ROUNDED ON pt. RESTING IN BED, REPORTED PAIN HAS DECREASED "A LITTLE" NO REQUESTS AT THIS TIME. CALL LIGHT WITHIN REACH.
--- NOTE | 2020-04-13 07:05 | NUR ---
REPORT RECEIVED FROM RASTA CARRASQUILLO. PT RESTING IN BED, DROWSINESS NOTED. PT REPORTS 6/10 PAIN AND STATES "I DON'T KNOW, I DON'T REALLY NOTICE IT, ITS JUST UNCOMFORTABLE." MID LINE INCISION C/D/I, EDGES WELL APROXIMATED, NO DRAINAGE NOTED. PT DRIFTS BACK TO SLEEP. BED RAILS UP. CALL LIGHT WITHIN REACH.
--- NOTE | 2020-04-13 07:11 | NUR ---
MD CALLED REGARDING PTS PAIN CONTROL. NEW ORDERS GIVEN, CONFIRMED WITH REPEAT BACK.
--- NOTE | 2020-04-13 09:28 | NUR ---
MORNING ASSESSMENT AND MEDICATION DUE. PT AWAKENS TO VOICE. PT REPORTS 6/10 PAIN IN ABDOMEN, SEE MAR FOR MEDICATION GIVEN. PT SLOW TO RESPOND WITH MOST QUESTIONS AND DROWSY AT TIMES. 1 PERSON STANDY BY ASSIST UP TO RESTROOM AND THEN TO CHAIR. PT VOIDS WITHOUT ISSUE. DEPENDS NOTED TO BE WET. PT REPORTS LEAKING, NANDA CARE DONE. DEPENDS CHANGED. ASSESMENT DONE. LUNG SOUNDS CLEAR. MIDLINE INCISION C/D/I WITH EDGES WELL APROXIMATED AND NO DRAINAGE NOTED. MEDICATIONS GIVEN (SEE MAR). PT PROVIDED WITH TEA AND JELLOW FOR BREAKFAST WITHIN FLUID RESTRICTIONS. WARM BLANKETS PROVIDED. NO ADDITIONAL REQUESTS OR COMPLAINTS AT THIS TIME. CALL LIGHT WITHIN REACH.
--- NOTE | 2020-04-13 11:19 | NUR ---
THIS RN TO ROOM TO CHECK ON PT. PT RESTING IN CHAIR WITH EYES CLOSED, RESPIRATIONS EVEN AND UNLABORED, RR = 18. CALL LIGHT WITHIN REACH. PT ALLOWED TO REST.
--- NOTE | 2020-04-13 12:06 | NUR ---
NOON ASSESSMENT DUE. PT RESTING IN BED WITH EYES CLOSED, AWAKENS TO MOVEMENT IN ROOM. PT REPORTS 5/10 PAIN AND DENIES NEED FOR PAIN MEDICATION AT THIS TIME. NEW ICE PACK PROVIDED. PT HAD VERY LITTLE APPITITE FOR BREAKFAST EATING ONLY 50ML OF JELLO. CRANBERRY JUICE PROVIDED FOR LUNCH PER PT REQUEST. ASSESSMENT DONE. MID LINE INCISION C/D/I, EDGES WELL APROXIMATED WITH NO DRAINAGE NOTED. PT DROWSY AND SLOW TO RESPOND BUT ORIENTED TO ALL. NO ADDITIOANLR EQUESTS OR COMPLAINTS. PT RESTING WITH EYES CLOSED. RESPIRATIONS EVEN AND UNLABORED. BED RAILS UP. CALL LIGHT WITHIN REACH.
--- NOTE | 2020-04-13 12:40 | NUR ---
PATIENT JUST GETTING BACK INTO BED FROM BR. VITALS AND I&OS DONE AND CHARTED. CALL LIGHT IN REACH. NO OTHER NEEDS
--- NOTE | 2020-04-13 13:01 | NUR ---
PT CALL LIGHT ON. 1 PERSON ASSIST UP TO RESTROOM. PT VOIDS WITHOUT ISSUE. NANDA CARE DONE, DEPENDS CHAGNED. PT ENCOURAGED TO GET UP TO CHAIR BUT DECLINES AT THIS TIME. PT BACK TO BED. PT REPORTS 5/10 PAIN AND DENIES NEED FOR ADDITIONAL PAIN MEDICAITON AT THIS TIME. PT TAKING SIPS OF WATER AND CRANBERR JUICE. NO ADDITIONAL REQUESTS OR COMPLAINTS. BED RAILS UP. CALL LIGHT WITHIN REACH.
--- NOTE | 2020-04-13 14:09 | NUR ---
THIS RN TO ROOM TO CHECK ON PT. PT RESTING ON RIGHT SIDE WITH EYES CLOSED. RESPIRATIONS EVEN AND UNLABORED. PT ALLOWED TO REST. BED RAILS UP. CALL LIGHT WITHIN REACH.
--- NOTE | 2020-04-13 14:45 | NUR ---
THIS STRIPPER SHOVEL OPERATOR ASSISTED PATIENT TO BATHROOM AND BACK TO BED. NOTIFIED RN THAT PATIENT WOULD LIKE SOME TYLENOL. CALL LIGHT IN REACH
--- NOTE | 2020-04-13 14:50 | NUR ---
SUPERVISOR LACE TEARING REPORTS TO THIS RN THAT PT "WOULD LIKE SOME TYLENOL." THIS RN TO ROOM PT REPORTS 5/10 HEADACHE AND STATES SHE TAKE TYLENOL AND SLEEPS IN THE DARK WITH HEADACHES. PT REPORTS SHE HAS A HISTORY OF MIGRAINS BUT "THIS ISN'T QUTIE THAT." PT REPORTS SHE DOESN'T LIKE THE LIGHTS OR CURTAINS OPEN. PAIN CONTROL MEASURES DISCUSSED WITH PT. CURTAINS CLOSED, LIGHTS DIMMED. PT STATES SHE WOULD RATHER WAIT TO TAKE A NORCO IN 30 MINUTES THAN TAKE TYLENOL. PT REPORTS SHE IS READY FOR A SHOWER. 1 PERSON STAND BY ASSIST UP TO SHOWER WITH SUPERVISOR LACE TEARING. VITALS TAKEN. BP NOTED TO BE HIGHER THAN NORMAL FOR THIS PT. WILL REASSESS AFTER SHOWER. LINENS CHANGED. PT TOLERATED SHOWER WELL AND NOW STATES "I FEEL BETTER NOW." PT BACK TO BED. PAIN MEDICATION GIVEN. NEW BAG OF FLUIDS HUNG. ASSESSMENT DONE. LUNG SOUNDS CLEAR. MIDLINE INCISION C/D/I WITH EDGES WELL APROXIMATED, NO DRAINAGE NOTED. BLOOD PRESSURE REASSESSED, NOW 158/74. PT ASSISTED WITH ORAL CARE AND COMBING HAIR. WARM BLANKETS PROVIDED. NO ADDITIONAL REQUESTS OR COMPLAINTS AT THIS TIME. PTS DAUGHTER JANICE, AT BEDSIDE. CALL LIGHT WITHIN REACH.
--- NOTE | 2020-04-13 17:42 | NUR ---
THIS RN TO ROOM TO CHECK ON PT. PT RESTING IN BED WITH EYES CLOSED. PT AWAKENS TO MOVEMENT IN THE ROOM. PT REPORTS PAIN IS "BETTER" NOW 12/26. PT ENCORUAGED TO GET UP TO CHAIR FOR DINNER (JUICE AND JELLO) BUT DECLINES AT THIS TIME. NO ADDITIONAL REQUESTS OR COMPLAINTS. CALL LIGHT WITHIN REACH.
--- NOTE | 2020-04-13 17:46 | NUR ---
PT POST OP DAY 2 AFTER COLECTOMY. PT UP FOR SHOWER THIS SHIFT AND UP TO CHAIR WITH 1 PERSON TO STAND BY ASSIST. PT TOLERATING CLEAR LIQUID DIET WITH MINIMAL APPITITE AND 1000ML FLUID RESTRICION. PT DENIES NAUSEA. MINIMAL INTAKE THIS SHIFT. PT DROWSY AND SLOW TO RESPOND THIS SHIFT, FLUCUATING WITH PAIN MEDICATION ADMINISTRATION. PT REPORTS 3-7/10 PAIN, PRN PAIN MEDICATION GIVEN. MIDLINE ABDOMINAL INCISION C/D/I WITH EDGES WELL APROXIMATED AND NO DRAINAGE NOTED. DAUGHTER HERE TO VISIT. PT VOIDING QUANTITY SUFFICIENT. PT USES CALL LIGHT APPROPRIATLY.
--- NOTE | 2020-04-13 19:10 | NUR ---
RECEIVED REPORT FROM RASTA GONZALEZ. pt UP TO VOID, CALL LIGHT WITHIN REACH. WILL CALL WHEN READY. WHITEBOARD UPDATED.
--- NOTE | 2020-04-13 19:20 | NUR ---
PT CALLED FROM RESTROOM FOR ASSISTANCE BACK TO BED. SHE DENIES FURTHER NEEDS AT THIS TIME AND IS WORKING ON HER CLEAR LIQUID TRAY. CALL LIGHT IS CLOSE.
--- NOTE | 2020-04-13 20:21 | NUR ---
IN TO DO ASSESSMENT. pt RESTING IN BED. ALERT AND AWAKE. RATED PAIN 5/10, IT IS "OKAY" AT THIS TIME. DISCUSSED PAIN MANAGEMENT FOR THE SHIFT. ASSESSMENT DONE. I&O AND VITALS RECORDED. NO FURTHER REQUESTS AT THIS TIME. CALL LIGHT WITHIN REACH.
--- NOTE | 2020-04-13 21:57 | NUR ---
HELPED PT TO THE BATHROOM AND BACK TO BED. SCD'S PLUGGED BACK IN. BLANKET WRAPPED AAROUN HER FEET PER PT REQUEST. 2 WARM BLANKETS GIVEN PER HER REQUEST ALSO. BEDSIDE TABLE AND CALL LIGHT IN REACH. PT NEEDS NOTHING MORE AT THIS TIME.
--- NOTE | 2020-04-13 22:00 | NUR ---
ADMINISTERED NORCO FOR PAIN PER PT REQUEST. SHE DENIES FURTHER NEEDS AT THIS TIME. CALL LIGHT IS CLOSE.
--- NOTE | 2020-04-14 | NUR ---
CALL LIGHT ON, pt UP TO TOILET 1PA, AND BACK TO BED. REQUESTED PRN PAIN MEDICATION FOR 7/10 PAIN, GIVEN (SEE MAR). ICE PACK AND WARM BLANKETS PROVIDED. NO FURTHER REQUESTS AT THIS TIME. CALL LIGHT WITHIN REACH. NEW BAG OF IVF HUNG (SEE MAR).
--- NOTE | 2020-04-14 01:10 | NUR ---
ROUNDED ON pt. REPORTED PAIN IS "BETTER" NO REQUESTS AT THIS TIME. CALL LIGHT WITHIN REACH.
--- NOTE | 2020-04-14 02:38 | NUR ---
CALL LIGHT ON. pt UP TO VOID 1PA, BACK TO BED. STATED PAIN WAS "OKAY, BETTER THAN BEFORE" NO FURTHER REQUESTS AT THIS TIME. CALL LIGHT WITHIN REACH.
--- NOTE | 2020-04-14 05:18 | NUR ---
CALL LIGHT ON. pt UP TO VOID 1PA, REQUESTED PRN PAIN MEDS FOR 7/10 PAIN, GIVEN (SEE MAR). DISCUSSED PAIN MANAGEMENT, pt WOULD LIKE TO TRY A HIGHER DOSE OF TYLENOL AND USE LESS NARCOTIC. DISCUSSED pt GETTING UP MULTIPLE TIMES TO VOID DURING THE NIGHT. ENCOURAGED pt TO DISCUSS THESE CONCERNS WITH MD. NO FURTHER REQUESTS AT THIS TIME. CALL LIGHT WTIHIN REACH INFORMED CHARGE NURSE.
--- NOTE | 2020-04-14 05:22 | NUR ---
pt RESTED ON AND OFF DURING SHIFT. REPORTED DIFFICULTY SLEEPING DUE TO "HAVING TO GET UP TO PEE SO OFTEN." 1PA, IVF INFUSING. TOLERATING CLEAR LIQUID DIET WITH 1000ML FLUID RESTRICTION. NO NAUSEA, PASSING GAS. MIDLINE INCISION OPEN TO AIR, GAEL, EDGES WELL APPROXIMATED, SLIGHT REDNESS NOTED AROUND GAEL. NO DRAINAGED. PAIN MANAGED WITH PRN PO X2, IV X1. pt WOULD LIKE TO TRY A DIFFERENT MEDICATION FOR PAIN. USES CALL LIGHT APPROPRIATELY.
--- NOTE | 2020-04-14 07:09 | NUR ---
REPORT RECEIVED FROM RASTA CARRASQUILLO. PT RESTING IN BED. REPORTS 6/10 PAIN AND DENIES NEED FOR ADDITIONAL MEDICAITON AT THIS TIME. PT DENIES NAUSEA. PT UPDATED ON PLAN OF CARE AND ENCORUAGED TO AMBULATE THIS SOMETIME TODAY. PT CONTINUES TO REST IN BED. BED RAILS UP. CALL LIGHT WITHIN REACH. SCD'S ON.
--- NOTE | 2020-04-14 07:30 | NUR ---
PATIENT RESTING IN BED. PATIENT USES THE BATHROOM, ONE PERSON ASSISTING WITH WALKER. PATIENT'S HANDS AND FACE WASHED. PATIENT BACKS TO CHAIR. PATIENT'S LIQUID TRAY ORDERED. CALL LIGHT WITHIN REACH. NO OTHER NEEDS AT THIS TIME
--- NOTE | 2020-04-14 09:30 | NUR ---
MORNING ASSESSMENT AND MEDICATION DUE. 1PERSON STAND BY ASSIST UP TO RESTROOM AND THEN UP TO CHAIR. ASSESSMENT DONE. LUNG SOUNDS CLEAR. BOWEL TONES HEARD. PT REPROTS 6 PAIN AND REQUESTS "ONLY TYELNOL." SEE MAR FOR MEDICATION GIVEN. MID LINE INCISION C/D/I WITH EDGES WELL APROXIMATED. PT ADVANCED TO FULL LIQUID DIET, TOLERATING WELL, NO NAUSEA. PT ENCORUAGED TO SHOWER AND AMBULATE TODAY. PLAN MADE. PT UP TO CHAIR EATING BREAKFAST. NO ADDITIONAL REQUESTS OR COMPLAINTS. CALL LIGHT WITHIN REACH. WARM BLANKETS PROVIDED.
--- NOTE | 2020-04-14 09:56 | NUR ---
PATIENT SITTING UP IN CHAIR. VITAL SIGNS AND I&O DONE. CALL LIGHT WITHIN REACH. NO OTHER NEEDS AT THIS TIME
--- NOTE | 2020-04-14 10:27 | NUR ---
THIS RN TO ROOM TO CHECK ON PT. PT FINISHED WITH BREAKFAST. PT STATES SHE IS READY TO AMBULATE. RATES PAIN AT 5/10. PT UP TO AMBULATE IN [facility]COS X1 LAP WITH STAND BY ASSIST AND FWW SUPPORT. PT BACK TO ROOM. WARM BLANKETS PROVIDED. CALL LIGHT WITHIN REACH.
--- NOTE | 2020-04-14 12:12 | NUR ---
NOON ASSESSMENT DUE. THIS RN TO ROOM. PT RESTING IN BED WITH SLEEP MASK IN PLACE. PT AWAKENS AND REMOVES SLEEP MASK WHEN THIS RN ENTERS ROOM. PT REPORTS 5/10 PAIN AND DENIES NEED FOR ADDITIONAL PAIN MEDICATION AT THIS TIME. 1 PERSON ASSIST UP TO RESTROOM. PT VOIDS WITHOUT ISSUE. NANDA CARE DONE. DRY DEPENDS IN PLACE. 1 PERSON STAND BY ASSIST UP TO CHAIR. ASSESSMENT DONE. LUNG SOUNDS CLEAR. MIDLINE INCISION C/D/I WITH EDGES WELL APROXIMATED. NO DRAINAGE. NOTED. PT EATING FULL LIQUID LUNCH. NO ADDITIONAL REQUESTS OR COMPLAINTS AT THIS TIME. CALL LIGHT WITHIN REACH.
--- NOTE | 2020-04-14 13:08 | NUR ---
PATIENT SITTING UP IN CHAIR. VITAL SIGNS AND I&O DONE. PATIENT USES THE BATHROOM, ONE PERSON ASSITING WITH WALKER. CALL LIGHT WITHIN REACH. NO OTHER NEEDS AT THIS TIME
--- NOTE | 2020-04-14 13:19 | NUR ---
PT UP TO AMBULATE X1 LAP IN ARCOS WITH RASTA RAMOS. PT BACK TO BED TO REST. REPORTS PAIN IS "ABOUT THE SAME" AND DENIES NEED FOR PAIN MEDICATION AT THIS TIME. NO ADDITIONAL REQUESTS OR COMPLAINTS AT THIS TIME. CALL LIGHT WITHIN REACH.
--- NOTE | 2020-04-14 15:25 | NUR ---
PATIENT SITTING UP IN BED. DAUGHTER IN ROOM. ORAL CARE DONE. CALL LIGHT WITHIN REACH. NO OTHER NEEDS AT THIS TIME
--- NOTE | 2020-04-14 15:43 | NUR ---
PT CALL LIGHT ON. PT RESTING IN BED, REQUESTS ASSISTANCE UP TO RESTROOM. PT STEADY ON FEET WITH STAND BY ASSIST. VOIDS WITHOUT ISSUE. PT UP TO CHAIR. WATCHING TV. NO ADDITIONAL REQUESTS OR COMPLAINTS AT THIS TIME. REPORTS 4/10 PAIN AND DENIES NEED FOR PAIN MEDICAITON.
--- NOTE | 2020-04-14 16:57 | NUR ---
AFTERNOON ASSESSMENT DUE. PT UP TO CHAIR. PT REPORTS 6/10 PAIN AND ASKS FOR TYLENOL. SEE MAR FOR MEDICATION GIVEN. PT UP TO AMBULATE X1 LAP IN ARCOS AND THEN UP TO RESTROOM. PT PASSING LARGE AMOUNTS OF GAS. PT AWAKE AND ALERT, TELLING STORIES ABOUT HER FAMILY. LUNG SOUNDS CLEAR. MID LINE INCISION C/D/I WITH EDGES WELL APROXIMATED. PT DENIES NAUSEA, TOLERATING FULL LIQUID DIET WELL. PT BACK TO CHAIR. NO ADDITIONAL REQUESTS OR COMPLAINTS AT THIS TIME. PT ANTICIPATING DINNER. NO ADDITIONAL REQUESTS OR COMPLAINTS AT THIS TIME. CALL LIGHT WITHINR EACH.
--- NOTE | 2020-04-14 17:43 | NUR ---
PATIENT SITTING UP IN CHAIR TAKING HER DINNER. VITAL SIGNS AND I&O DONE. CALL LIGHT WITHIN REACH. NO OTHER NEEDS AT THIS TIME
--- NOTE | 2020-04-14 18:01 | NUR ---
PT POST OP AFTER COLECTION. STAND BY ASSIST UP TO RESTROOM, CHAIR AND TO AMBULATE X3 LAPS IN ARCOS THIS SHIFT. PT ADVANCED TO FULL LIQUID DIET, TOLERATING WELL WITH NO NAUSEA. PT PASSING LARGE AMOUNTS OF GAS THIS SHIFT AND VOIDING WELL. FLUID RESTRICTION DC'D. MID LINE INCISION C/D/I THIS SHIFT WITH EDGES WELL APROXIMATED. IV FLUID RATE SLOWED TO 50ML/HR. PT HAS ADEQUATE ORAL INTAKE. 4-6/10 PAIN THIS SHIFT, WELL CONTROLED WITH TYLENOL. PT USES CALL LIGHT APPROPRIATLY.
--- NOTE | 2020-04-14 18:26 | NUR ---
THIS RN TO ROOM TO CHECK ON PT. PT REPORTS 6/10 ABDOMINAL PAIN AND REQUESTS ADDITIONAL MEDICATION. SEE MAR FOR MEDICATION GIVEN. BLOOD PRESSURE REASSESSED BY THIS RN, WNL. STAND BY ASSIST UP TO RESTROOM. PT STEADY ON FEET. PT VOIDS WITHOUT ISSUE. PT BACK TO BED. WARM BLANKET PROVIDED. NO ADDITIONAL REQUESTS OR COMPLAINTS. CALL LIGHT WITHIN REACH. BED RAILS UP.
--- NOTE | 2020-04-14 19:04 | NUR ---
RECEIVED REPORT FROM RASTA GONZALEZ. pt RESTING IN BED. NO REQUESTS AT THIS TIME. CALL LIGHT WITHIN REACH. WHITEBOARD UPDATED.
--- NOTE | 2020-04-14 20:01 | NUR ---
ASSESSMENT DONE. INCISION REMAINS CDI, EDGES WELL APPROXIMATED, NO CHANGE IN SLIGHT REDNESS NOTED. BOWEL TONES ARE ACTIVE. REPORTED 6/10 PAIN. DISCUSSED PAIN MANAGEMENT AND AGREED ON A PLAN FOR THE SHIFT. VITALS AND I&O RECORDED. pt UP TO VOID, MERCHANDISE SHOPPER IN ROOM TO ASSIST.
--- NOTE | 2020-04-14 20:08 | NUR ---
VITALS AND I&OS DONE AND CHARTED. FRESH WATER GIVEN. HELPED HER TO THE BATHROOM AND BACK TO BED. BEDSIDE TABLE AND CALL LIGHT IN REACH. PT NEEDS NOHING MORE AT THIS TIME.
--- NOTE | 2020-04-14 22:33 | NUR ---
CALL LIGHT ON pt UP TO TOILET. REQUESTED TO GO ON A WALK, 1 LAP AROUND THE UNIT. SETTLED IN BED WITH A WARM BLANKET. POSSESSIONS AND CALL LIGHT WITHIN REACH. NO FURTHER REQUESTS AT THIS TIME.
--- NOTE | 2020-04-15 00:44 | NUR ---
HELPED PT TO THE BATHROOM AND BACK TO BED. SCD'S PLUGGED BACK IN. BEDSIDE TABLE AND CALL LIGHT IN REACH. PT NEEDS NOTHING MORE AT THIS TIME.
--- NOTE | 2020-04-15 00:52 | NUR ---
IN TO ASSESS PAIN PER PLAN, pt REPORTED 6/10 PAIN, PRN GIVEN (SEE MAR). PROVIDED WATER. NO FURTHER REQUESTS AT THIS TIME. CALL LIGHT WITHIN REACH.
--- NOTE | 2020-04-15 02:30 | NUR ---
HELPED PT TO THE BATHROOM AND BACK TO BED. SCD'S TURNED BACK ON. BEDSIDE TABLE AND CALL LIGHT IN REACH. PT NEEDS NOTHING MORE AT THIS TIME.
--- NOTE | 2020-04-15 04:55 | NUR ---
CALL LIGHT ON pt UP TO VOID AND BACK TO BED. ASSESSMENT DONE. INCISION CDI, EDGES WELL APPROXIMATED. REPORTED 6/10 PAIN, PRN PAIN MEDICATION GIVEN (SEE MAR). FRESH WATER PROVIDED. NO FURTHER REQUESTS AT THIS TIME. CALL LIGHT WITHIN REACH.
--- NOTE | 2020-04-15 05:05 | NUR ---
VITALS DONE AND CHARTED. GARBAGES EMPTIED. BEDSIDE TABLE AND CALL LIGHT IN REACH.
--- NOTE | 2020-04-15 05:09 | NUR ---
pt RESTED ON AND OFF DURING SHIFT. AMBULATED IN HALLS X1. SBA. TOLERATING A FULL LIQUID DIET. PRN PAIN MEDS X2. PASSING GAS. MIDLINE INCISION CDI, EDGES WELL APPROXIMATED, SLIGHT REDNESS AROUND GAEL UNCHANGED. IVF. USES CALL LIGHT APPROPRIATELY.
--- NOTE | 2020-04-15 07:30 | NUR ---
PT AWAKE AND INTERACTIVE AT TIME OF BEDSIDE REPORT. UP TO THE CHAIR AGREES SHE IS COMFORTABLE WAITING FOR BREAKFAST, CALL LIGHT IN REACH WELL NEEDED ITEMS
--- NOTE | 2020-04-15 07:35 | NUR ---
PATIENT RESTING IN BED. RN IN ROOM. WHITE BOARD UPDATED. PATIENT ASSISTED TO TRANSFER TO CHAIR, ONE PERSON ASSISTING WITH WALKER. PATIENT'S HANDS AND FACE WASHED. WARM BLANKET PROVIDED. CALL LIGHT WITHIN REACH. NO OTHER NEEDS AT THIS TIME
--- NOTE | 2020-04-15 08:40 | NUR ---
DR GALLEGOS IN TO SEE PT ORDERS GIVEN
--- NOTE | 2020-04-15 09:47 | NUR ---
CALL LIGHT ANSWERED. PATIENT USING THE BATHROOM. ORAL CARE DONE. PATIENT BACKS TO CHAIR. ONE PERSON ASSISTING. VITAL SIGNS AND I&O DONE. CALL LIGHT WITHIN REACH. NO OTHER NEEDS AT THIS TIME
--- NOTE | 2020-04-15 11:09 | NUR ---
PT AMBULATES THE ARCOS WELL TOLERATED. STATES HER ONLY CONCERN WITH DC TOMORROW IS THAT SHE FEELS WEAK. ENCOURAGED PT TO BE ACTIVE ASW POSSIBLE TO INCREASE STAMINA. TOLERATING PO INTAKE AND BOWELS ARE MOVING. PT DENIES PAIN STATES SHE IS JUST SORE AGREES WE SHOULD CONTINUE TYLENOL FOR COMFORT
--- NOTE | 2020-04-15 14:04 | NUR ---
PT EATS WELL FOR NOON MEAL, LAYS DOWN TO REST AFTRWARD. RESTING EYES CLOSED AT THIS TIME
--- NOTE | 2020-04-15 14:16 | NUR ---
PATIENT RESTING IN BED. VITAL SIGNS AND I&O DONE. PATIENT USES THE BATHROOM, ONE PERSON ASSISTING WITH WALKER. PATIENT BACKS TO BED. CALL LIGHT WITHIN REACH. NO OTHER NEEDS AT THIS TIME
--- NOTE | 2020-04-15 16:13 | NUR ---
CALL LIGHT ANSWERED. PATIENT RESTING IN BED. PATIENT USES THE BATHROOM. ONE PERSON ASSITING WITH WALKER. PATIENT GOES TO WALK IN THE HALLWAY. ONE PERSON ASSITING. PATIENT BACKS TO CHAIR. CALL LIGHT WITHIN REACH. NO OTHER NEEDS AT THIS TIME
--- NOTE | 2020-04-15 17:16 | NUR ---
PT UP AMBULATING ARCOS WITH STAFF
--- NOTE | 2020-04-15 17:53 | NUR ---
PATIENT IN CHAIR EATING DINNER. I&OS DONE AND CHARTED. PATIENT HAS CALL LIGHT WITHIN REACH. NO OTHER NEEDS AT THIS TIME
--- NOTE | 2020-04-15 18:11 | NUR ---
PATIENT SITTING UP IN CHAIR. VITAL SIGNS AND I&O DONE. CALL LIGHT WITHIN REACH. NO OTHER NEEDS AT THIS TIME
--- NOTE | 2020-04-15 19:27 | NUR ---
REPORT RECEIVED FROM RASTA ARANDA. pt UP IN CHAIR. BREATHING EVEN AND UNLABORED.
--- NOTE | 2020-04-15 19:46 | NUR ---
CALL LIGHT ANSWERED. SBA TO RESTROOM FOR VOID. AMBULATED IN HALLWAY X 1 LAP. STANDING WEIGHT PER pt REQUEST. 72.7 KG. BACK IN ROOM. CAR USHER JANUARY IN ROOM.
--- NOTE | 2020-04-15 19:54 | NUR ---
WALKED PT AROUND MED SURG FLOOR. GOT HER BACK TO BED. SCD'S PUT ON AND TWO WARM BLANKETS GIVEN. BEDSIDE TABLE AND CALL LIGHT IN REACH. PT NEEDS NOTHING MORE AT THIS TIME.
--- NOTE | 2020-04-15 20:45 | NUR ---
ASSESSMENT COMPLETE. VSS, PT ALERT AND ORIENTED, LAYING IN BED. MIDLINE INCISION CDI, SCDS ON. PT REQUESTS PRN TYLENOL FOR PAIN 5/10 IN ABDOMEN/BACK WHICH PT BELIEVES IS D/T THE BED. PT REPOSITIONED AND PRN PAIN MEDS PROVIDED. CALL LIGHT WITH IN REACH.
--- NOTE | 2020-04-15 22:44 | NUR ---
CALL LIGHT ANSWERED. pt PROVIDED WITH SLEEP MASK REQUESTED. CALL LIGHT IN REACH. NO ADDITIONAL REQUESTS.
--- NOTE | 2020-04-15 23:57 | NUR ---
HELPED PT TO THE BATHROOM AND BACK TO BED WITH HER FWW. SCD'S PUT BACK ON AND TURNED ON. BEDSIDE TABLE AND CALL LIGHT IN REACH.
--- NOTE | 2020-04-16 01:56 | NUR ---
HELPED PT TO THE BATHROOM AND BACK TO BED WITH HER FWW. SCD' PLUGGED BACK IN. BEDSIDE TABLE AND CALL LIGHT IN REACH. PT NEEDS NOTHING MORE AT THIS TIME.
--- NOTE | 2020-04-16 03:56 | NUR ---
CALL LIGHT ANSWERED. PT AMBULATED TO RESTROOM TO VOID. ASSESSMENT COMPLETED. PT REPORTS PAIN 6/10 IN RIGHT FLANK AREA. PRN IBUPROFEN ADMINISTERED WITH A WARM PACK APPLIED TO RIGHT FLANK. INCISION IS CDI AND PAIN FREE. CALL LIGHT AND BEDSIDE TABLE WITHIN REACH.
--- NOTE | 2020-04-16 04:59 | NUR ---
PT HAD A DECENT NIGHT ALTHOUGH WAS UP FREQUENTLY TO VOID. PT AMBULATES WITH FWW OR INFUSION POLE WITH SBA. PT IS ABLE TO TOILET INDEPENDENTLY. PT WAS TALKATIVE AND ORIENTED WHEN AWAKE.
--- NOTE | 2020-04-16 06:41 | NUR ---
DURING MORNING VITALS, PT STATES HER PAIN IS 6/10. PRN TYLENOL ADMINISTERED PER PT WISH. PT WAS JUST UP TO VOID AT TOILET. CALL LIGHT AND BEDSIDE TABLE WITHIN REACH
--- NOTE | 2020-04-16 07:15 | NUR ---
PT AWAKE AT TIME OF BEDSIDE REPORT RESTING IN BED AGREES SHE IS COMFORTABLE. CALL LIGHT IN REACH STATES SHE WILL REST IN BED UNTIL BREAKFAST ARRIVES
--- NOTE | 2020-04-16 07:30 | NUR ---
PATIENT SITTING UP IN CHAIR. WHITE BOARD UPDATED. PATIENT'S HANDS AND FACE WASHED. SETS UP BATHROOM FOR SHOWER. WARM BLANKET PROVIDED. CALL LIGHT WITHIN REACH. NO OTHER NEEDS AT THIS TIME
--- NOTE | 2020-04-16 09:19 | NUR ---
PT TOLERATES REGULAR DIET EATS MOST OF BREAKFAST WITH NO C/O NAUSEA OR DISCOMFORT. VISITING WITH A FRIEND AND SITTING UP IN THE CHAIR. PT ANTICIPATES DC TODAY STATES SHE FEELS READY
--- NOTE | 2020-04-16 10:00 | NUR ---
PATIENT SITTING UP IN CHAIR. VISITOR IN ROOM. VITAL SIGNS AND I&O DONE. CALL LIGHT WITHIN REACH. NO OTHER NEEDS AT THIS TIME
--- NOTE | 2020-04-16 10:33 | NUR ---
PT TO SHOWER PER REQUEST
--- NOTE | 2020-04-16 10:51 | NUR ---
PATIENT SITTING UP IN CHAIR. PATIENT GOES TO USE THE BATHROOM. PATIENT TAKES A SHOWER. ONE PERSON ASSISTING. PATIENT USING A CLEAN GOWN AND ADULT PULL UP. PATIENT BACKS TO CHAIR. CALL LIGHT WITHIN REACH. NO OTHER NEEDS AT THIS TIME
[2020-04-16] MEDS ORDERED: OXYCODONE HCL5 MG PO (12:15)
--- NOTE | 2020-04-16 13:39 | NUR ---
PATIENT SITTING UP IN CHAIR. VITAL SIGNS AND I&O DONE. CALL LIGHT WITHIN REACH. NO OTHER NEEDS AT THIS TIME
--- NOTE | 2020-04-16 14:30 | NUR ---
Pt sleeping soundly. NOt awakened. Spoke with RN. Pt is going home with son and daughter in law today.
--- NOTE | 2020-04-16 15:13 | NUR ---
ABDOMINAL GAEL REMOVED PER MD ORDERS SS IN PLACE. TOLERATED WELL BY PT WOUND WELL APPROXIMATED. WOUND CARE EDUCATION REPEATED, UNDERSTANDING VERBALIZED. PT IS DRESSED AND RESTING NOW, WAITING FOR SON TO DRIVE HER HOME
--- NOTE | 2020-04-17 07:30 | DS ---
[facility] [address] [place], [place] [address] Signed ADMISSION DATE: 04/11/2020 DISCHARGE DATE: 04/16/2020 FINAL DIAGNOSIS: Right colon tumor/cancer. PROCEDURE: Right colectomy. HISTORY OF PRESENT ILLNESS: Angelina is a 80-year-old female, who had undergone evaluation for anemia. She was found to have a tumor in her distal right colon or the area of right kidney. Consequently, she came to the hospital for her surgery. HOSPITAL COURSE: Angelina was admitted on 04/11/2020 and underwent her right colectomy with a gqzv-zg-egmq stapled anastomosis. We found that she has a very long redundant transverse left colon as well. Her intra and postop course had been uncomplicated. We did have to replace potassium, phosphorus, magnesium while she was here. In addition, she has been anemic with a hemoglobin around 8.2. She was puffy from the IV fluids. We went and gave her 2 units of packed red blood cells and brought her hemoglobin up to 10.2. Overall, she looked and felt better and her energy improved after the packed red blood cells. Within a few days then, her urine output picked up and she looks and feels much better at this point. The edema has all gone. She is now up to a regular diet. We have had her back on her regular medications. On exam, her abdomen is completely flat and soft. No further distention or any tympany. The incision is healing well without any local signs or symptoms of infection. Consequently, we are going to be discharging her home today. DISCHARGE PLANS AND MEDICATIONS: Angelina will be discharged to home with a prescription for oxycodone immediate release 5 mg tablets 1 tablet p.o. q.6 hours p.r.n. for severe postoperative pain. We will dispense 15 tablets with no refills. Otherwise, she can use Tylenol, ibuprofen, or Aleve zfqr-nyf-ueixbvd. She can resume all her chronic medications as she has here in the hospital. She can continue a regular diet at home. She can perform her activities of daily living including walking up and down stairs and showering and bathing as usual. We are going to remove all the marcos today. She has suturing her skin and her muscle. We have asked her not to do any heavy pushing, pulling, or lifting over about 20 pounds. We will have her back in the office in a few days. She has expressed understanding, agrees to above plan. Electronically Signed By: TORRIE GALLEGOS MD 04/17/20 0730 PATIENT NAME: TRAVIS MANLEY DISCHARGE SUMMARY DATE OF : 42 REPORT #: [id number] PHYSICIAN: TORRIE GALLEGOS MD PCP: ANGELINA HUERTAS MD REPORT IS CONFIDENTIAL AND NOT TO BE RELEASED WITHOUT AUTHORIZATION [address] [address] Signed MD FAITH Mauricio/PORFIRIOL /[id number] cc: MD Oscar Mauricio, MD Angelina Bean MD Copies: TORRIE GALLEGOS MD,LISY Martin MD ~ Electronically Signed By: TORRIE GALLEGOS MD 04/17/20 0730 PATIENT NAME: TRAVIS MANLEY DISCHARGE SUMMARY DATE OF : 42 REPORT #: [id number] PHYSICIAN: TORRIE GALLEGOS MD PCP: ANGELINA HUERTAS MD REPORT IS CONFIDENTIAL AND NOT TO BE RELEASED WITHOUT AUTHORIZATION
--- NOTE | 2020-04-17 11:33 | PATH ---
[facility] [address] [place], [place] [address] Signed SPECIMEN(S): A RIGHT COLON SPECIMEN SOURCE: A. RIGHT COLON CLINICAL HISTORY: Large intestine adenocarcinoma cecum. Right colectomy. FINAL PATHOLOGIC DIAGNOSIS: Colon, cecum, and terminal ileum, right hemicolectomy: - Invasive colonic adenocarcinoma with the following features: - Tumor site: Cecum. - Tumor size: 7.5 x 6.2 x 1.7 cm. - Histologic type: Adenocarcinoma. - Histologic grade: Poorly differentiated. - Tumor extension: Tumor invades through the muscularis propria into pericolorectal tissue. - Margins: All margins are uninvolved by invasive carcinoma, high-grade dysplasia/intramucosal carcinoma, and low- grade dysplasia. - Treatment effect: No known pre-surgical therapy. - Lymphovascular invasion: Present. - Perineural invasion: Not identified. - Tumor deposits: Not identified. - Regional lymph nodes: - Number of lymph nodes involved: 1 - Number of lymph nodes examined: 36. - Pathologic stage classification (pTNM, AJCC 8th edition): - pT3 pN1a - Ancillary studies: See comment. - Ileum: No histopathologic abnormality. - Appendix: Surgically absent, suture granuloma at appendiceal stump. - See Comment. COMMENT: As part of [facility] Quality Improvement Program, this case was reviewed by another member of our pathology staff. Mismatch repair (MMR) studies by IHC have been ordered and will be reported by an addendum. BRAF mutation testing may not be indicated in the absence of metastatic disease and has not been ordered. PATIENT NAME: TRAVIS MANLEY PATHOLOGY DATE OF : 42 REPORT #: [id number] PHYSICIAN: NEYDA PATHOLOGY PCP: MARY KAY HUERTAS MD REPORT IS CONFIDENTIAL AND NOT TO BE RELEASED WITHOUT AUTHORIZATION [facility] [address] [place] [address] Signed If testing is desired, please contact Neyda with prior authorization if applicable. The results were verbally given to Dr. Crowley's office on 04/17/2020. NAL:NRT:cml:C1NR MICROSCOPIC EXAMINATION: Histologic sections of all submitted blocks are examined by light microscopy. An immunohistochemical stain (with appropriately staining controls) for pancytokeratin AE1/AE3 was performed on one lymph node and confirms the presence of tumor cells. These findings, together with the gross examination, support the pathologic diagnosis. GROSS DESCRIPTION: The specimen, labeled "GM," and designated on the requisition "right colon," is received in formalin and consists of a previously opened segment of colon and small bowel. Upon reconstruction the segment of colon is 26.7 cm long, 9.2 cm in circumference and has attached adipose tissue up to 7.0 cm wide. The terminal ileum is 6.4 cm long, 2.0 cm in diameter. The colonic serosa is diffusely covered with adipose tissue in restrepo-brown adhesions. The terminal ileum serosa is restrepo-pink, smooth, glistening. The distal colonic margin is closed by a 5.2 cm long staple line which is removed and the underlying tissue is inked blue. The proximal terminal ileum margin is closed by a 2.5 cm staple line which is removed and the underlying tissue is inked red. On the colonic mucosa is a circumferential, fungating, restrepo-white, friable, 7.5 x 6.2 x 1.7 cm lesion that is 2.5 cm from the radial margin, 4.8 cm from the ileocecal valve, 6.5 cm from one more proximal vascular root which is inked green, 8.7 cm from one more distal vascular root which is inked orange, 17.5 cm from the distal margin, and 11.2 cm from the proximal margin. The radial margin is inked black and has two pink-restrepo lymph node candidates at the margin, 0.7 and 1.2 cm in greatest dimension. The second, orange inked vascular root has a previously sectioned, partially absent 0.4 cm in greatest dimension, restrepo lymph node candidate. The lesion grossly appears to invade through the mucosa, submucosa, muscularis and into the surrounding tissue. The remaining colonic mucosa has multiple restrepo, polypoid structures from 0.1 up to 0.9 cm in greatest dimension. The polyps are 0.4 cm from the distal margin, 1.1 cm from the ileocecal valve, 7.4 cm from the proximal and does not grossly appear to involve the terminal ileum. PATIENT NAME: TRAVIS MANLEY PATHOLOGY DATE OF : 42 REPORT #: [id number] PHYSICIAN: NEYDA PATHOLOGY PCP: MARY KAY HUERTAS MD REPORT IS CONFIDENTIAL AND NOT TO BE RELEASED WITHOUT AUTHORIZATION [facility] [address] [place] [address] Signed The polyps do not grossly appear to invade through mucosa. The distal margin is additionally inked yellow due to blue ink bleeding. The terminal ileum mucosa is restrepo, grossly unremarkable with usual folds. No discrete mass/lesions are grossly identified. The appendix is absent. In the appendiceal area is a well-healed, restrepo-white, 0.5 x 0.4 cm possible appendiceal stump with a blue suture. The attached adipose is removed, sectioned, and palpated for lymph nodes. An additional 36 pink-restrepo lymph node candidates from 0.2 up to 1.4 cm in greatest dimension are found. The remaining adipose tissue is placed in TriFix for further evaluation. The next day the tissue was further evaluating and no additional lymph nodes are grossly identified. Tapper Hand sections are submitted as follows: A1-distal margin en face A2-proximal margin en face A3-radial margin en face and bisected smaller lymph node candidate at the margin A4-larger radial margin lymph node candidate A5-green inked, proximal vascular root margin en face A6-orange inked, and distal vascular root margin en face including lymph node candidate at margin O4-I4-nvljfl A9-lesion to serosa T26-G48-chbpaw to normal mucosa E56-uflzjv M03-pffjva to distal margin P17-adtlfz adjacent to ileocecal N85-vkvjyt J00-qkhgpr colonic mucosa N97-swbfngdzk valve R93-hvvamqaj ileum C54-uutscghp appendiceal stump A20-six lymph node candidates in toto A21-six lymph node candidates in toto A22-six lymph candidates in toto K71-rqwu lymph node candidates in toto C23-gvws lymph node candidates in toto N33-aghz lymph node candidates in toto R08-tvavk lymph node candidates in toto A27-one lymph node candidate bisected PATIENT NAME: TRAVIS MANLEY PATHOLOGY DATE OF : 42 REPORT #: [id number] PHYSICIAN: NEYDA JIN PCP: MARY KAY HUERTAS MD REPORT IS CONFIDENTIAL AND NOT TO BE RELEASED WITHOUT AUTHORIZATION [facility] [address] [place] [address] Signed A28-one lymph node candidate bisected AI (under the direct supervision of a pathologist) The Gross Description was prepared using a voice recognition system. The report was reviewed for accuracy; however, sound-alike word errors, addition and/or deletions may occur. If there is any question about this report, please contact Client Services. PERFORMING LABORATORY: The technical component was performed by [facility], [address] [place] [address] (Lead Radiation Therapist: Lara Garcia MD; CLIA# [id number]). [facility], [address] [place] [address] (CLIA# [id number]). Diagnostician: Sherrie Waldrop MD Pathologist Electronically Signed 04/17/2020 Copies: ~ PATIENT NAME: TRAVIS MANLEY PATHOLOGY DATE OF : 42 REPORT #: [id number] PHYSICIAN: NEYDA JIN PCP: MARY KAY HUERTAS MD REPORT IS CONFIDENTIAL AND NOT TO BE RELEASED WITHOUT AUTHORIZATION
== END 2020-04-16 16:00 | disposition home or self-care (01) | DRG 330 ==
LOC: MS 04-11 08:45 → DSVR 04-11 08:45 → MS 04-11 11:00 → CCU 04-11 13:45 → MS 04-12 12:30
PROVIDERS: ADMIT Colon & Rectal Surgery
PROC: 3E0T3BZ Introduction of Anesthetic Agent into Peripheral Nerves and Plexi, Percutaneous Approach (ICD-10-PCS; 2020-04-11)
PROC: 0DTF0ZZ Resection of Right Large Intestine, Open Approach (ICD-10-PCS; principal; 2020-04-11 11:00)
PROC: 30233N1 Transfusion of Nonautologous Red Blood Cells into Peripheral Vein, Percutaneous Approach (ICD-10-PCS; 2020-04-12)
DX: C18.0 Malignant neoplasm of cecum (principal); Q43.8 Other specified congenital malformations of intestine; G89.18 Other acute postprocedural pain; D63.0 Anemia in neoplastic disease; F32.9 Major depressive disorder, single episode, unspecified; E87.6 Hypokalemia; E83.39 Other disorders of phosphorus metabolism; E83.42 Hypomagnesemia; G89.29 Other chronic pain; E78.00 Pure hypercholesterolemia, unspecified; Z88.8 Allergy status to other drugs, medicaments and biological substances; Z79.899 Other long term (current) drug therapy; Z87.891 Personal history of nicotine dependence; Z79.1 Long term (current) use of non-steroidal anti-inflammatories (NSAID); Z85.3 Personal history of malignant neoplasm of breast
CPT/HCPCS: 00790; 36415; 36430; 64488; 76942; 80048; 83735; 84100; 84134; 85025; 88307; 88309; 88341; 88342; 94760; A9270; C9113; J0131; J0330; J0360; J0690; J1100; J1170; J1644; J1650; J1720; J1885; J2250; J2405; J2704; J2765; J3010; J3475; J7060; J7121; P9016

== ENCOUNTER 2021-04-30 08:14 | Day surgery (SDC) | payer MEDICARE, OTHER ==
[~2021-04-30] VITALS: Ht 165.1 cm; Wt 86.0 kg
[~2021-04-30 08:14] MED LIST changes: +CITRACAL-VIT D1 EAC1 PO; +CRANBERRY500 M3 PO; +FERROUS SULFAT324 MG PO; +MAGNESIUM200 MG PO; +NEURONTIN300 MG PO; +OXYCODONE HCL5 MG PO; +REMERON15 MG PO; +REMERON30 MG PO; +TYLENOL EXTRA500 MG PO
--- NOTE | 2021-04-30 10:54 | NUR ---
04/30/21 1054 Brianne Woodard 1047-PATIENT ARRIVED TO PACU ON 2L NC RR EVEN LAYING LEFT LATERAL. PATIENT OPENS EYES TO VERBAL STIMULI. ABDOMEN ROUND AND SOFT ENCOURAGED TO PASS GAS. IVF INFUSING. 1053-PATIENT SLEEPING AROUSES TRO VERBAL STIMULI DENIES PAIN OR NAUSEA. 2L NC. APNEA ENCOURAGED TO TAKE DEEP BREATHES AND DOZES BACK TO SLEEP. RR EVEN
--- NOTE | 2021-05-01 07:37 | OR ---
[facility] [address] [place], [place] [address] Signed DATE OF OPERATION: 04/30/2021 SURGEON: Torrie Gallegos MD PREOPERATIVE DIAGNOSES: 1. Long redundant colon. 2. Chronic constipation. 3. Diverticulosis. 4. Internal hemorrhoids. 5. History of melanosis coli. 6. Colonic polyps in 2010. 7. Father with colon polyps. 8. Sister with carcinoid tumor of the intestine. 9. Right colectomy in February 2020 for stage III adenocarcinoma of the cecum. POSTOPERATIVE DIAGNOSES: 1. Long redundant colon. 2. Arjniey-dm-pqhhucvm diverticulosis. 3. Moderate internal hemorrhoids. PROCEDURE: Colonoscopy without biopsy to the transverse colon. ESTIMATED BLOOD LOSS: None. 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 She had polyps removed back in 2010. In 2018, she underwent colonoscopy, was noted to have a very long redundant colon. She had to come back after a double bowel prep. She is known to have diverticulosis along with internal hemorrhoids. She did have melanosis coli after using docusate for many years. She stopped using docusate. She now uses MiraLAX, that has been working out well. We know her father had colonic polyps. Her sister had surgery for carcinoid of her intestine. Angelina ended up with stage III adenocarcinoma of the cecum requiring a right colectomy back in 2019. She has been asked to see me for followup. She still needs MiraLAX for constipation. In the office, I gave her a pamphlet on colonoscopy. She understands the nature of the test along with the risks including, but not limited to gas bloating, crampy abdominal pain, bleeding, perforation requiring surgery, and missed diagnosis. She also understands the need for IV conscious sedation. She had expressed understanding and wished to proceed. Electronically Signed By: TORRIE GALLEGOS MD 05/01/21 0737 PATIENT NAME: TRAVIS MANLEY OPERATIVE REPORT DATE OF : 42 REPORT #: [id number] PHYSICIAN: TORRIE GALLEGOS MD PCP: ANGELINA FRIEND MD REPORT IS CONFIDENTIAL AND NOT TO BE RELEASED WITHOUT AUTHORIZATION [facility] [address] [place], [place] [address] Signed PROCEDURE NOTE: Travis was taken into our endoscopy suite and placed in the left lateral decubitus position. She was given 5 mg of Versed and 100 mcg of fentanyl to cover the case. A digital rectal exam was performed and this was unremarkable. We used both the pediatric scope and the adult colonoscope and ran both cameras all the way up to the handle without difficulty. She did require some abdominal compression. We did place her in the supine position and back into the left lateral decubitus position. She is not particularly unbelievably long redundant colon. Overall, her prep was good. We never definitively find the anastomosis. In that regard, she is going to need a followup barium enema. The scope was then slowly withdrawn. She does have diverticula in the sigmoid colon. They were moderate in size, a few in number, and scattered around. The rectum was unremarkable. Upon retroflexion of the scope, she has moderate internal hemorrhoids. After this, the gas was suctioned out and colonoscope removed. Angelina tolerated the procedure quite well. RECOMMENDATIONS: I will see Angelina back in my office in 7 to 14 days to review the results and review the need for the barium enema. Torrie Gallegos MD ALB/MODL /[id number] cc: Torrie Gallegos MD Chart Filed Incomplete Angelina Friend MD Copies: TORRIE GALLEGOS MD Electronically Signed By: TORRIE GALLEGOS MD 05/01/21 0737 PATIENT NAME: TRAVIS MANLEY OPERATIVE REPORT DATE OF : 42 REPORT #: [id number] PHYSICIAN: TORRIE GALLEGOS MD PCP: ANGELINA FRIEND MD REPORT IS CONFIDENTIAL AND NOT TO BE RELEASED WITHOUT AUTHORIZATION [facility] [address] [place] [address] Signed CHART FILED INCOMPLETE ~ Electronically Signed By: TORRIE GALLEGOS MD 05/01/21 0737 PATIENT NAME: TRAVIS MANLEY OPERATIVE REPORT DATE OF : 42 REPORT #: [id number] PHYSICIAN: TORRIE GALLEGOS MD PCP: ANGELINA FRIEND MD REPORT IS CONFIDENTIAL AND NOT TO BE RELEASED WITHOUT AUTHORIZATION
== END 2021-04-30 11:35 | disposition home or self-care (01) ==
LOC: OPS 08:14 → DS 08:14 → OPS 09:45
PROVIDERS: ATTEND Colon & Rectal Surgery
PROC: 0DJD8ZZ Inspection of Lower Intestinal Tract, Via Natural or Artificial Opening Endoscopic (ICD-10-PCS; principal; 2021-04-30 09:45)
DX: Z08 Encounter for follow-up examination after completed treatment for malignant neoplasm (principal); Q43.8 Other specified congenital malformations of intestine; K57.30 Diverticulosis of large intestine without perforation or abscess without bleeding; K64.0 First degree hemorrhoids; K59.09 Other constipation; M81.0 Age-related osteoporosis without current pathological fracture; I10 Essential (primary) hypertension; E78.00 Pure hypercholesterolemia, unspecified; Z85.038 Personal history of other malignant neoplasm of large intestine; Z86.010 Personal history of colon polyps; Z83.71 Family history of colonic polyps; Z85.3 Personal history of malignant neoplasm of breast; Z80.0 Family history of malignant neoplasm of digestive organs; Z90.13 Acquired absence of bilateral breasts and nipples; Z90.49 Acquired absence of other specified parts of digestive tract; Z92.21 Personal history of antineoplastic chemotherapy; Z87.19 Personal history of other diseases of the digestive system
CPT/HCPCS: 99153; G0500; J2250; J3010; J7121

== ENCOUNTER 2022-04-01 09:06 | Day surgery (SDC) | payer MEDICARE ==
[~2022-04-01] VITALS: Ht 165.1 cm; Wt 71.6 kg
[~2022-04-01 09:06] MED LIST changes: +ALENDRONATE SOD70 MG PO; +LISINOPRIL10 MG PO; +MIRALAX17 GM PO
--- NOTE | 2022-04-01 12:06 | NUR ---
04/01/22 1206 Britney Govea 1145- PT TO PACU IN SF POSITION. EYES CLOSED. PT RESPONDS TO VERBAL AND TACTILE STIMULI DENIES PAIN AND FALLS QUICKLY BACK TO SLEEP. BREATHING EASY AND UNLABORED. SPO2 >95% ON 3 L O2 VIA NC. 1154- PT RESPONDS TO VERBAL STIMULI. BREATHING EASY AND UNLABORED. SPO2 >95% ON 2 L O2 VIA NC. PT ENCOURAGED TO TAKE DEEP BREATHS. PT DENIES PAIN AND IS REQUESTING WATER. 1204-PT HOB ELEVATED. PT DENIES PAIN NAUSEA AND DIZZINESS. BREATHING EASY AND UNLABORED. SPO2 >95% ON 2 L O2 VIA NC. O2 TITRATED DOWN TO ROOM AIR. PT TOLERATING PO WELL.
--- NOTE | 2022-04-02 05:38 | OR ---
[facility] [address] [place], [place] [address] Signed DATE OF OPERATION: 04/01/2022 SURGEON: Torrie Gallegos MD PREOPERATIVE DIAGNOSES: 1. Remote history of breast cancer. 2. Stage III right colon cancer in March 2020 with 1/36 lymph nodes positive. 3. A 9 cm right hepatic mass with pathologist concern for upper GI or hepatobiliary source. 4. Distal esophageal dysphagia. 5. Sister with a history of carcinoid tumor. 6. CT-PET scan without any mass in the esophagus, pancreatic duct, or biliary tree. POSTOPERATIVE DIAGNOSIS: Mild diffuse punctate hemorrhagic gastritis. PROCEDURES: Esophagogastroduodenoscopy with CLOtest and biopsy of the antrum, GE junction. ESTIMATED BLOOD LOSS: None. 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 She described bilateral mastectomies many years ago while living in [place], [place] for her breast cancer. I helped her with a right colectomy in March of 2020 for her stage III colon cancer with 1/36 lymph nodes positive. She could not tolerate the chemotherapy, so that was discontinued. Her repeat colonoscopy in April 2021 was unremarkable. Her medical oncologist found that her liver enzymes were elevated in December of 2021. The CEA was normal. A CT scan showed a 9 cm mass in the right lobe of the liver. CT-guided needle biopsy revealed cancer. The pathologist felt it was more consistent with an epithelial tumor of the upper GI tract or pancreatic or biliary source. A prior history of breast and colorectal cancer had been noted. She was therefore asked to see me expeditiously for an upper endoscopy. In the meantime, she underwent a PET-CT scan and that was unremarkable with respect to the esophagus, biliary tree, and the pancreas. She told me she has never smoked and never had acid reflux. She does not drink. No one around her has ever smoked. She has declined additional chemotherapy. There was some consideration that she will be on brachytherapy for the liver tumor. She did not embrace hospice at this time. In the office, I gave her a pamphlet on upper endoscopy. She understands that test quite well. There is risk Electronically Signed By: TORRIE GALLEGOS MD 04/02/22 0538 PATIENT NAME: TRAVIS MANLEY OPERATIVE REPORT DATE OF : 42 REPORT #: [id number] PHYSICIAN: TORRIE GALLEGOS MD PCP: MARY KAY HUERTAS MD REPORT IS CONFIDENTIAL AND NOT TO BE RELEASED WITHOUT AUTHORIZATION [facility] [address] [place] [id number] Signed including, but not limited to gas bloating, crampy abdominal pain, bleeding, perforation requiring surgery, and missed diagnosis. She understands the need for IV conscious sedation. She had expressed understanding and wished to proceed. DESCRIPTION OF PROCEDURE: Travis was taken into our endoscopy suite and placed in a supine semi-recumbent position. She was given 3 mg of Versed and 50 mcg of fentanyl to cover the case. The posterior oropharynx was anesthetized with lidocaine spray. A bite block was utilized for the case. The adult gastroscope was introduced and advanced under direct visualization of camera into the third portion of the duodenum. The duodenum and pyloric channel were unremarkable. The stomach showed mild diffuse punctate hemorrhagic inflammatory changes. We took a biopsy of the antrum for CLOtest as well as pathologic review. Upon retroflexion of scope, I do not see any evidence of a hiatal hernia or mass. The scope was withdrawn up through the area of the GE junction, which was compliant without stricture. There did not appear to be any obvious gastric or esophageal varices. She had very minimal disruption around the Z-line. I did not see any evidence of a mass. I went and took a single biopsy along the edge of the Z-line. There was no Kidd mucosa. There was no distal esophagitis. The middle and upper esophagus were unremarkable. After this, the gas was suctioned out and the gastroscope removed. Travis tolerated the procedure quite well. RECOMMENDATIONS: I will see Travis back in my office in 7 to 14 days to review her results. Torrie Gallegos MD ALB/MODL /[id number] cc: Lisy Rios MD Patient Chart MD Torrie Hassan MD Electronically Signed By: TORRIE GALLEGOS MD 04/02/22 0538 PATIENT NAME: TRAVIS MANLEY OPERATIVE REPORT DATE OF : 42 REPORT #: [id number] PHYSICIAN: TORRIE GALLEGOS MD PCP: MARY KAY HUERTAS MD REPORT IS CONFIDENTIAL AND NOT TO BE RELEASED WITHOUT AUTHORIZATION [address] [address] Signed Copies: LISY RIOS MD, ANDREW L MD ~ Electronically Signed By: TORRIE GALLEGOS MD 04/02/22 0538 PATIENT NAME: TRAVIS MANLEY OPERATIVE REPORT DATE OF : 42 REPORT #: [id number] PHYSICIAN: TORRIE GALLEGOS MD PCP: MARY KAY HUERTAS MD REPORT IS CONFIDENTIAL AND NOT TO BE RELEASED WITHOUT AUTHORIZATION
--- NOTE | 2022-04-02 18:06 | PATH ---
[facility] [address] [place], [place] [address] Signed SPECIMEN(S): A ANTRUM/ANTRAL BIOPSY SPECIMEN(S): B GE JUNCTION SPECIMEN SOURCE: A. ANTRUM/ANTRAL BIOPSY B. GE JUNCTION CLINICAL HISTORY: EGD. Esophageal dysphagia, breast CA, colon CA, hepatic mass. Postop: Gastritis. FINAL PATHOLOGIC DIAGNOSIS: A. Stomach, antrum, biopsy: - Antral mucosa with chronic, inactive gastritis. - Negative for Helicobacter organisms on HE stain. - Negative for dysplasia or malignancy. B. Gastroesophageal junction, biopsy: - Squamocolumnar junctional mucosa with reactive changes and inflammation, consistent with reflux esophagitis. - Negative for intestinal metaplasia, dysplasia, or malignancy. NAL:cml:C2NR MICROSCOPIC EXAMINATION: Histologic sections of all submitted blocks are examined by light microscopy. These findings, together with the gross examination, support the pathologic diagnosis. GROSS DESCRIPTION: Two specimens are received in two containers, labeled "GM." A. The specimen, labeled "GM, antrum biopsy," is received in formalin and consists of one restrepo soft tissue fragment that measures 0.2 cm in greatest dimension. The specimen is entirely submitted in cassette (A1). B. The specimen, labeled "GM, GE junction biopsy," is received in formalin and consists of one restrepo soft tissue fragment that measures 0.1 cm in greatest dimension. The specimen is entirely submitted in cassette (B1). JS (under the direct supervision of a pathologist) The Gross Description was prepared using a voice recognition system. The report was reviewed for accuracy; however, sound-alike word errors, addition and/or deletions may occur. If there is any PATIENT NAME: TRAVIS MANLEY PATHOLOGY DATE OF : 42 REPORT #: [id number] PHYSICIAN: CECI JIN PCP: MARY KAY HUERTAS MD REPORT IS CONFIDENTIAL AND NOT TO BE RELEASED WITHOUT AUTHORIZATION [facility] [address] [place] [address] Signed question about this report, please contact Client Services. PERFORMING LABORATORY: The technical [place] [address] (CLIA# [id number]). Professional interpretation was performed by [facility], [address] [address] (CLIA# [id number]). Diagnostician: Sherrie Waldrop MD Pathologist Electronically Signed 04/02/2022 Copies: ~ PATIENT NAME: TRAVIS MANLEY PATHOLOGY DATE OF : 42 REPORT #: [id number] PHYSICIAN: CECI PATHOLOGY PCP: MARY KAY HUERTAS MD REPORT IS CONFIDENTIAL AND NOT TO BE RELEASED WITHOUT AUTHORIZATION
== END 2022-04-01 12:25 | disposition home or self-care (01) ==
LOC: OPS 09:06 → DS 09:10 → OPS 09:45 → DS 10:30 → OPS 12:25
PROVIDERS: ATTEND Colon & Rectal Surgery
PROC: 0DB68ZX Excision of Stomach, Via Natural or Artificial Opening Endoscopic, Diagnostic (ICD-10-PCS; 2022-04-01)
PROC: 0DB58ZX Excision of Esophagus, Via Natural or Artificial Opening Endoscopic, Diagnostic (ICD-10-PCS; principal; 2022-04-01 09:45)
DX: K29.51 Unspecified chronic gastritis with bleeding (principal); K21.00 Gastro-esophageal reflux disease with esophagitis, without bleeding; Z98.51 Tubal ligation status; K64.8 Other hemorrhoids; K57.30 Diverticulosis of large intestine without perforation or abscess without bleeding; C18.9 Malignant neoplasm of colon, unspecified; C78.7 Secondary malignant neoplasm of liver and intrahepatic bile duct; Z90.49 Acquired absence of other specified parts of digestive tract
CPT/HCPCS: 36415; 87077; 99153; G0500; J2250; J3010; J7121

== ENCOUNTER 2022-04-14 11:15 | Emergency (ER) | payer MEDICARE ==
[~2022-04-14] VITALS: Ht 165.1 cm; Wt 71.4 kg
--- NOTE | 2022-04-14 14:05 | EKG ---
[facility] [address] [place] [address] Signed Normal sinus rhythm Incomplete right bundle branch block Left anterior fascicular block Minimal voltage criteria for LVH, may be normal variant ( Semaj product ) Abnormal ECG When compared with ECG of 09-APR-2020 12:10, CO interval has decreased Incomplete right bundle branch block is now present Confirmed by VIVIANA JOYCE MD ([id number]) on 04/14/2022 2:05:00 PM Electronically Signed By: VIVIANA JOYCE MD 04/14/22 1405 PATIENT NAME: TRAVIS MANLEY Electrocardiogram DATE OF : 42 PHYSICIAN: VIVIANA JOYCE MD REPORT #: [id number] REPORT IS CONFIDENTIAL AND NOT TO BE RELEASED WITHOUT AUTHORIZATION
[2022-04-14] MEDS ORDERED: BACTRIM DS TAB1 EACH PO (15:22)
== END 2022-04-14 15:30 | disposition home or self-care (01) ==
LOC: ED 11:15
DX: R53.1 Weakness (principal); E86.0 Dehydration; N39.0 Urinary tract infection, site not specified; R79.89 Other specified abnormal findings of blood chemistry; I10 Essential (primary) hypertension; C22.8 Malignant neoplasm of liver, primary, unspecified as to type; Z79.899 Other long term (current) drug therapy
CPT/HCPCS: 36415; 70450; 71045; 80053; 81001; 82140; 83735; 84484; 85025; 85610; 93005; 93010; J7030